=== PATIENT | male | born 1975 | race Caucasian/White ===

== ENCOUNTER → 2021-04-18 10:00 | Outpatient (CLI) | payer OTHER, SELFPAY ==
--- NOTE | ~2021-04-18 | MR_ITS ---
EXAMINATION: MR ankle RT wo con DATE: 04/18/2021 10:54 INDICATION: Sprain of right Achilles tendon. Right ankle injury. TECHNIQUE: Magnetic resonance imaging (MRI) of the right ankle was performed without intravenous cont rast. Sequences included sagittal PD-weighted FS FSE, sagittal PD-weighted FSE, coronal PD-weighted F S FSE, coronal PD-weighted FSE, axial PD-weighted FS FSE, and axial PD-weighted FSE. COMPARISON: None. FINDINGS: Medial ankle ligaments: There are changes of prior sprain of the deltoid ligament. The superficial component demonstrates thi ckening and increased signal intensity. The deep component demonstrates some absent fibers and some d isorganized fibers. Lateral ankle ligaments: There are changes of prior sprain of anterior talofibular ligament characterized by increased signal intensity. There are changes of sprain of calcaneofibular ligament characterized by thickening and in creased signal intensity. Posterior talofibular ligament is normal. The anterior and posterior tibiof ibular ligaments are intact. Tendons: There is mild peroneus brevis and peroneus longus tendinopathy. The anterior and medial ankle tendons are normal. Achilles tendon demonstrates thickening and increased signal intensity, worst 4.1 cm pro ximal to the distal attachment, consistent with tendinopathy and partial tear. Plantar fascia: There is thickening and increased signal involving the central band of plantar fascia, consistent wit h fasciitis. Bones/other: There is moderate osteoarthritis of tibiotalar joint, worst anteriorly. There is mild osteoarthritis of subtalar joint and some of the midfoot joints. Fluid: There are small ankle joint and subtalar joint effusions. IMPRESSION: 1. Tendinopathy and partial tear of Achilles tendon. 2. 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 3. Small ankle joint and subtalar joint effusions. 4. Plantar fasciitis. 5. Changes of prior medial and lateral ankle sprains. Reviewed, dictated and finalized at location A.
== END ==
PROVIDERS: Visit Provider Podiatrist Foot & Ankle Surgery
DX: S86.011A Strain of right Achilles tendon, initial encounter (principal); S86.091A Other specified injury of right Achilles tendon, initial encounter; X58.XXXA Exposure to other specified factors, initial encounter; M72.2 Plantar fascial fibromatosis; M19.071 Primary osteoarthritis, right ankle and foot; M25.471 Effusion, right ankle
CPT/HCPCS: 73721

== ENCOUNTER 2022-10-13 13:23 | Emergency (ER) | payer OTHER, SELFPAY ==
[2022-10-13] VITALS (15 sets, daily range): BP systolic 149–170; BP diastolic 80–85; PULSE 76–95; RESP 16; TEMP 36.7–36.9; O2SAT 94–100
--- NOTE | ~2022-10-13 | XR_ITS ---
EXAMINATION: XR chest 2V DATE: 10/13/2022 14:01 INDICATION: Chest pain and tightness TECHNIQUE: Frontal and lateral views of the chest are obtained COMPARISON: None available FINDINGS: There is a 7 mm nodule in right upper lobe. There is a 5 mm nodule in the right middle lobe . No pleural effusion or pneumothorax. The cardiomediastinal silhouette is normal. The visualized bon es and soft tissues are unremarkable. IMPRESSION: 1. Right lung nodules which could be sequela of prior infection however, further evaluation with CT o f the chest is recommended. Reviewed, dictated and finalized at location B. CIATE PROFESSOR PHYSICIAN IMPRESSION: 1. Right lung nodules which could be sequela of prior infection however, furthe r evaluation with CT of the chest is recommended.
--- NOTE | 2022-10-13 13:24 | ECG_ITS ---
Measurements Intervals [place] Rate: 91 P: 28 OR: 160 QRS: 62 QRSD: 102 T: 38 QT: 334 QTc: 413 Interpretive Statements SINUS RHYTHM NO PREVIOUS ECG AVAILABLE FOR COMPARISON Electronically Signed On 10-13-2022 15:52:14 FIBERLINE SUPERVISOR by Carolyn Klein M.D.
[2022-10-13 13:59] LABS: Basophils Percent Auto 0.6 % (0.2-1.2); Eosinophils Absolute Auto 0.1 K/mm3 (0-0.3); Eosinophils Percent Auto 1.4 % (0-4.4); Hematocrit 47.3 % (42.0-52.0); Hemoglobin 16.4 g/dL (14.0-18.0); Immature Granulocyte Absolute 0.03 K/mm3 (0.00-0.031); Immature Granulocyte Percent A 0.5 % (0-0.5); Lymphocytes Absolute Auto 2.78 K/mm3 (0.9-3.2); Lymphocytes Percent Auto 42.4 % (18.3-44.2); Mean Corpuscular HGB Conc 34.7 g/dl (32-36); Mean Corpuscular Hemoglobin 29.1 pg (26-34); Mean Corpuscular Volume 83.9 fl (80-100); Mean Platelet Volume 9.4 fl (7.4-10.4); Monocytes Absolute Auto 0.6 K/mm3 (0.1-0.6); Monocytes Percent Auto 9.3 % (2.6-8.5); Neutrophils Percent Auto 45.8 % (45.5-73.1); Platelet Count Result 292 k/mm3 (150-375); Red Blood Count 5.64 M/mm3 (4.6-6.20); White Blood Count 6.6 K/mm3 (4.5-10.0)
[2022-10-13 14:09] LABS: Alanine Aminotransferase 81 U/L (6-50); Albumin Level 4.9 g/dL (3.5-5.1); Alkaline Phosphatase 53 U/L (38-126); Anion Gap 9 mmol/L (8-16); Aspartate Amino Transferase 43 U/L (17-59); Bilirubin,Total 0.8 mg/dL (0.2-1.3); Blood Urea Nitrogen 17 mg/dL (9-20); Calcium 9.4 mg/dL (8.4-10.2); Carbon Dioxide 28 mmol/L (22-30); Chloride 99 mmol/L (98-107); Estimated CRCL calculation 90 ml/min; Estimated Glomerular Filt Rate > 60; Glucose 106 mg/dL (65-110); Lipase 73 U/L (23-300); Sodium 136 mmol/L (137-145)
[2022-10-13 14:21] LABS: Troponin I < 0.012 ng/mL (0.000-0.034)
[2022-10-13 16:29] LABS: INR 1.1; Prothrombin Time 13.4 Seconds (11.1-14.7)
[2022-10-13 16:30] LABS: Partial Thromboplastin Time 25.8 SECONDS (22.3-36.8)
[2022-10-13 16:41] LABS: Troponin I < 0.012 ng/mL (0.000-0.034)
--- NOTE | 2022-10-13 16:48 | ECG_ITS ---
Measurements Intervals [place] Rate: 90 P: 23 SD: 150 QRS: 70 QRSD: 106 T: 37 QT: 349 QTc: 428 Interpretive Statements SINUS RHYTHM NORMAL ECG COMPARED TO ECG 10/13/2022 13:30:31 NO SIGNIFICANT CHANGES Electronically Signed On 10-13-2022 17:03:55 CLIENT RENEWAL SPECIALIST by Khoa Reis M.D.
--- NOTE | 2022-10-13 16:48 | PC.NURSE ---
2nd trop drawn and 2nd ekg ordered
--- NOTE | 2022-10-13 17:37 | ED.CHESTPAIN ---
HPI - Chest Pain General Chief Complaint: Chest Pain Stated Complaint: CHEST TIGHTNESS [id number] Time Seen by Provider: 10/13/22 16:58 History of Present Illness HPI narrative: 47-year-old male history of anxiety and dyslipidemia presents to the emergency room for evaluation of chest tightness for 1 week. Patient states that he has been under significant external life stressors, including his son getting suspended from school, sister getting a divorce, and holding an intervention with his parents. Patient would not elaborate any further. States the chest tightness is worse at night, then usually disappears when he sleeps. Denies any other alleviating or aggravating factors denies shortness of breath. Does admit to some occasional dizziness and diarrhea. Related Data Home Medications Medication Instructions Recorded Confirmed fenofibrate 160 mg tablet mg 10/13/22 metformin 750 mg tablet,extended mg PO 10/13/22 release 24 hr Allergies Allergy/AdvReac Type Severity Reaction Status Date / Time No Known Allergies Allergy Verified 10/13/22 13:37 Review of Systems Review of Systems: CONSTITUTIONAL: Denies fever, chills, or sweats. EYES: Denies visual changes, redness, or discharge. ENT: Denies rhinorrhea, congestion, sore throat, or otalgia. CARDIOVASCULAR: Reports chest tightness RESPIRATORY: Denies cough or dyspnea. GASTROINTESTINAL: Reports diarrhea GENITOURINARY: Denies dysuria or hematuria. SKIN: Denies rash or itching. MUSCULOSKELETAL: Denies back pain, joint pain, or myalgia. NEUROLOGIC: Denies headache, numbness, dizziness, or weakness. PSYCHIATRIC: Denies anxiety or depression. Exam Narrative: GENERAL: Well-appearing, well-nourished, no physical limitations, and in no acute distress. HEAD: Normocephalic, atraumatic. EYES: Conjunctivae normal, PERRLA and EOMI. CHEST: Clear to auscultation. No respiratory distress. No wheezes rales or rhonchi. HEART: Regular rate and rhythm. No murmur heard. Normal peripheral pulses. ABDOMEN: Soft, nontender, nondistended, normal active bowel sounds. EXTREMITIES: Normal range of motion. No edema. No clubbing or cyanosis SKIN: Warm, dry, no rash. No noted wounds NEURO: No focal deficits. Alert and oriented x3. MAEW. CN's II-XI intact bilaterally, normal gait PSYCH: Cooperative. Normal mood and affect. Appears anxious Course Vital Signs Vital signs: Vital Signs Temperature 36.7 C 10/13/22 13:33 Pulse Rate 76 10/13/22 13:33 Respiratory Rate 16 10/13/22 13:33 Blood Pressure 170/82 H 10/13/22 13:33 Pulse Oximetry 100 10/13/22 13:33 Oxygen Delivery Room Air 10/13/22 13:33 Temperature 36.7 C 10/13/22 13:33 Pulse Rate 90 10/13/22 16:46 Respiratory Rate 16 10/13/22 17:01 Blood Pressure 150/80 H 10/13/22 17:01 Pulse Oximetry 97 10/13/22 17:01 Oxygen Delivery Room Air 10/13/22 13:33 MDM - Chest Pain MDM Narrative Medical decision making narrative: 47-year-old male history of anxiety and dyslipidemia presented emergency room for evaluation of chest tightness at night for a week. Admitted to being under significant life stressors at the moment which she believes may be contributing to symptoms. EKG showed no signs of ischemia. Troponin and delta troponin were both negative. Lab work was unremarkable. Chest x-ray showed no acute cardiopulmonary disease. PERC score was 0, D-dimer was within normal limits. Discussed findings with patient, stated that he may be experiencing some generalized anxiety due to his life stressors. We will trial the patient on hydroxyzine and follow-up with PCP. Lab Data 10/13/22 13:44 10/13/22 13:44 Labs: Lab Results 10/13/22 10/13/22 10/13/22 Range/Units 13:44 13:44 16:13 WBC 6.6 (4.5-10.0) K/mm3 RBC 5.64 (4.6-6.20) M/mm3 Hgb 16.4 (14.0-18.0) g/dL Hct 47.3 (42.0-52.0) % MCV 83.9 (80-100) fl MCH 29.1 (26-34) pg MCHC 34.7 (32-36) g/dl
[2022-10-13 18:09] LABS: D Dimer 0.38 ug/mL (<0.48)
== END 2022-10-13 18:58 | disposition home or self-care (01) ==
PROVIDERS: Emergency Medicine; Emergency Provider Nurse Practitioner Family; PCP Physician Assistant
DX: R07.89 Other chest pain (principal); F41.9 Anxiety disorder, unspecified; E78.5 Hyperlipidemia, unspecified; Z79.84 Long term (current) use of oral hypoglycemic drugs
CPT/HCPCS: 36415; 71046; 80053; 83690; 84484; 85025; 85380; 85610; 85730; 93005; 99284

== ENCOUNTER → 2023-02-04 10:09 | Outpatient (CLI) | payer OTHER, SELFPAY ==
--- NOTE | ~2023-02-04 | CT_ITS ---
Clinical Indication: Nonspecific abnormal finding of lung field CT Scan of the Chest with Contrast: Technique: Contiguous sections were acquired throughout the chest after intravenous administration of 75 cc of Omnipaque 350. Dose reduction technique was used on this scan by utilizing automated exposu re control and iterative reconstruction technique. The dose-length product (DLP) was 644.85 mGy-cm. Findings: There is no evidence of any significant mediastinal, hilar or axillary lymphadenopathy. No large cent ral pulmonary embolus. There is no evidence of aortic dissection or aneurysm. There is no evidence of pleural or pericardial effusion. Large calcified right upper lobe granuloma noted. Calcified right lower lobe granuloma present. Calci fied left lower lobe granuloma present. Images through the upper abdomen reveal to peripherally enhancing splenic lesions, measuring 2.2 cm a nd 1.6 cm in diameter respectively (axial image 103). Probable diffuse fatty infiltration of the live r noted. Impression: No suspicious pulmonary abnormality. Evidence of prior granulomatous disease. 2 peripherally enhancing splenic lesions, as noted above, indeterminate. Comparison with any prior ex ams, if available, would be useful to assess for chronicity of these findings. Otherwise, consider MR for further evaluation. Reviewed, dictated and finalized at location . Impression: No suspicious pulmonary abnormality. Evidence of prior granulomatous disease. 2 peripherally enhancing splenic lesions, as noted above, indeterminate. Compar prabha with any prior exams, if available, would be useful to assess for chronici ty of these findings. Otherwise, consider MR for further evaluation.
[2023-02-04 10:32] LABS: Estimated Glomerular Filt Rate 59
== END ==
PROVIDERS: PCP Physician Assistant; Visit Provider Physician Assistant
DX: R91.8 Other nonspecific abnormal finding of lung field (principal)
CPT/HCPCS: 71260; Q9967

== ENCOUNTER 2023-02-24 09:19 | Day surgery (SDC) | payer OTHER, SELFPAY ==
[2023-02-01 13:10] VITALS: BMI 38.4
[2023-02-07 14:14] VITALS: BMI 35.9
--- NOTE | 2023-02-23 14:59 | P.PNAN_ITS ---
Anes - Initial Pre Proc Eval Procedure: Operation Date: 02/24/23 11:00 Proposed Procedures p Screening Colonoscopy - Jasper Ruelas MD Date/Time: 02/23/23 14:59 Surgeon: Jasper Ruelas MD Pre Op Diagnosis: Neoplasm Screening Patient Data Age: 47 Gender: M Height: 1.78 m Weight: 113.6 kg Allergies Allergy/AdvReac Type Severity Reaction Status Date / Time No Known Allergies Allergy Verified 02/24/23 09:40 Home Medications Medication Instructions Recorded Confirmed Type fenofibrate 160 mg tablet 160 mg PO DAILY 10/13/22 02/24/23 History metformin 750 mg tablet,extended 750 mg PO DAILY 10/13/22 02/24/23 History release 24 hr Adults Multivitamin 1 tablet PO DAILY 02/07/23 02/24/23 History semaglutide 0.25 mg or 0.5 mg (2 5 mg subcut WEEKLY 02/07/23 02/24/23 History mg/1.5 mL) subcutaneous pen injector (Ozempic) Patient hx anesthesia problems: none Family hx anesthesia problems: none Results Review: All pre-operative results and documents have been reviewed as part of the pre- operative evaluation. [facility] Past Medical History Medical History (Updated 02/23/23 @ 14:59 by Jimi Roberson MD) Diabetes Obesity Social History Social History Smoking status: Never smoker Alcohol intake: current Drinks per week: 1 Substance use: never Substance use type: does not use Living arrangements: with family Spiritual care concerns: No Anes - Eval Final PreProcedure Day of Procedure 02/23/23 14:59 Patient weight: obese Heart: regular rate and rhythm Lungs: clear to auscultation and normal air movement Airway: Mallampati scale class II Neurological: alert and oriented Last oral intake: >/= 8 hours ASA classification: III Emergent: no Anesthetic plan: proceed Anesthesia type and monitoring: general GIVS Results Review: All pre-operative results and documents have been reviewed as part of the pre- operative evaluation. Informed Consent: The patient's anesthetic plan and its attendant risks and benefits were dis cussed with the patient/family/POA. Questions were solicited and answers provided to the satisfaction of the patient/family/POA.
[2023-02-24 09:35] VITALS: BP 140/83; PULSE 90; RESP 20; TEMP 36.5; O2SAT 98
[2023-02-24] MEDS: LACTATED RINGERS 1,000 ML 150 ML IV CONT (10:08)
[2023-02-24 10:09] LABS: Glucose Point of Care 103 mg/dl (65-105)
--- NOTE | 2023-02-24 10:22 | PM.HPGS ---
History of Present Illness History of Present Illness Consent: Risks, benefits, and alternatives have been discussed and questions answered. Patient agrees to proceed with procedure. Chief complaint: Neoplasm Screening Narrative: Brad Villa is a 47 year old male here for first screening colonoscopy Review of Systems Constitutional: Constitutional: Denies headache(s) and Denies weakness Eyes: Eyes: Denies blurry vision ENT: Reports Normal hearing present, Denies headache(s) and Denies neck pain Cardiovascular: Cardiovascular: Denies chest pain and Denies dyspnea Respiratory: Respiratory: Denies dyspnea Gastrointestinal: Gastrointestinal: Reports no additional gastrointestinal complaints Genitourinary: Genitourinary: Denies dysuria Musculoskeletal: Musculoskeletal: Denies neck pain Integumentary/Breasts: Skin/Breast: Denies dry skin Neurologic: Reports Normal hearing present, Denies headache(s) and Denies weakness Psychiatric: Psychiatric: Denies anxiety Endocrine: Endocrine: Denies change in body appearance Hematologic/Lymphatic: Hematologic/Lymphatic: Denies easy bleeding Allergic/Immunologic: Allergic/Immunologic: Denies urticaria [facility] Past Medical History Medical History (Updated 02/24/23 @ 10:23 by Jasper Ruelas MD) Colon cancer screening Diabetes Obesity Social History Social History Smoking status: Never smoker Alcohol intake: current Drinks per week: 1 Substance use: never Substance use type: does not use Living arrangements: with family Spiritual care concerns: No Meds Home Medications and Allergies Home Medications Medication Instructions Recorded Confirmed Type fenofibrate 160 mg tablet 160 mg PO DAILY 10/13/22 02/24/23 History metformin 750 mg tablet,extended 750 mg PO DAILY 10/13/22 02/24/23 History release 24 hr Adults Multivitamin 1 tablet PO DAILY 02/07/23 02/24/23 History semaglutide 0.25 mg or 0.5 mg (2 5 mg subcut WEEKLY 02/07/23 02/24/23 History mg/1.5 mL) subcutaneous pen injector (Ozempic) Allergies Allergy/AdvReac Type Severity Reaction Status Date / Time No Known Allergies Allergy Verified 02/24/23 09:40 Vital Signs Vital Signs - 24 hr 02/24/23 09:35 Temperature 97.7 F Pulse Rate 90 Respiratory Rate 20 Blood Pressure 140/83 Pulse Oximetry 98 Oxygen Delivery Room Air Exam Const: General: comfortable and no acute distress HENMT: Face/Nose/Sinus: Normal nares present Eyes: General: appearance normal, both eyes and all related structures Neck: Neck: no JVD Resp: Auscultation: clear to auscultation bilaterally Cardio: Rate: regular rate Rhythm: regular rhythm GI: Inspection: non-distended GI Palp: Yes Soft to palpation Skin: General skin exam: normal color Neuro: General: gait normal Speech: normal speech Extrem: General: normal to inspection Psych: Mental Status: mental status grossly normal Assessment and Plan Assessment and plan (1) Colon cancer screening: Code(s): Z12.11 - Encounter for screening for malignant neoplasm of colon Status: Acute Assessment and Plan: colonoscopy
[2023-02-24 10:48] VITALS: BP 104/71; PULSE 73; RESP 14; O2SAT 93
[2023-02-24 10:58] VITALS: BP 107/72; PULSE 84; RESP 15; O2SAT 98
[2023-02-24 11:08] VITALS: BP 121/73; PULSE 78; RESP 15; O2SAT 97
--- NOTE | 2023-03-01 08:46 | WPDANESPN ---
Anes - Prog Note Post-Op Date/Time: 03/01/23 08:46 Cardiovascular status: normal Respiratory status: normal Airway patency: baseline Mental status: baseline Post-Op hydration status: normal Vital Signs: Last Vital Signs Temp 36.5 C 02/24/23 09:35 Pulse 78 02/24/23 11:08 Resp 15 02/24/23 11:08 BP 121/73 02/24/23 11:08 Pulse Ox 97 02/24/23 11:08 O2 Del Method Room Air 02/24/23 11:08 Pain Score (VAS): 0 Post-procedural complaints: none Patient Feedback: Patient satisfied with anesthetic care.
== END 2023-02-24 11:10 | disposition home or self-care (01) ==
PROVIDERS: PCP Physician Assistant; Visit Provider Internal Medicine Gastroenterology
PROC: 0DJD8ZZ Inspection of Lower Intestinal Tract, Via Natural or Artificial Opening Endoscopic (ICD-10-PCS; CPT 45378; principal; 2023-02-24 11:00)
DX: Z12.11 Encounter for screening for malignant neoplasm of colon (principal)
CPT/HCPCS: 45378

== ENCOUNTER → 2023-06-02 12:49 | Outpatient (CLI) | payer OTHER, SELFPAY ==
--- NOTE | ~2023-06-02 | MR_ITS ---
EXAMINATION: MR abdomen wo/w con DATE: 06/02/2023 13:58 INDICATION: Lesion of spleen. TECHNIQUE: Magnetic resonance imaging (MRI) of the abdomen was performed without and with 20 mL Multi Kalli intravenous contrast. COMPARISON: Chest CT 02/04/2023 FINDINGS: There is diffuse hepatic steatosis. There are 2.3 cm and 1.7 cm hyperenhancing masses in the spleen. The gallbladder, pancreas, and adrenal glands are normal. There are cysts in the kidneys measuring up to 10 mm on the right. There are no dilated loops of bowel. There are no pathologically enlarged lym ph nodes. There is no ascites. IMPRESSION: 1. Two hyperenhancing splenic masses measuring up to 2.3 cm, stable from 02/04/2023. 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 Reviewed, dictated and finalized at location A. IMPRESSION: 1. Two hyperenhancing splenic masses measuring up to 2.3 cm, stable from 023. 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
== END ==
PROVIDERS: PCP Physician Assistant; Visit Provider Physician Assistant
DX: D73.89 Other diseases of spleen (principal)
CPT/HCPCS: 74183; A9577

== ENCOUNTER 2023-11-09 15:24 | Outpatient (CLI) | payer OTHER, SELFPAY ==
--- NOTE | ~2023-11-09 | XR_ITS ---
EXAMINATION: XR abdomen/kub 1V DATE: 11/09/2023 16:47 INDICATION: Gross hematuria. TECHNIQUE: A supine view of the abdomen on 2 radiographs was obtained. COMPARISON: CT abdomen and pelvis 11/09/23 FINDINGS: There are no dilated loops of bowel. There is contrast in the renal collecting system. Ther e is mild right hydronephrosis and hydroureter. IMPRESSION: 1. Mild right hydronephrosis and hydroureter. Reviewed, dictated and finalized at location E. DDER OPERATOR
--- NOTE | ~2023-11-09 | CT_ITS ---
EXAMINATION: CT abdomen pelvis wo/w con DATE: 11/09/2023 16:07 INDICATION: Gross hematuria. Right flank pain. TECHNIQUE: Computed tomography (CT) of the abdomen and pelvis was performed without and with intraven ous contrast using a total of 130 mL Omnipaque-350 intravenous contrast with a double-bolus technique for simultaneous opacification of the renal parenchyma and renal collecting system. Automated exposu re control and iterative reconstruction technique were employed. The dose-length product was 2697.50 mGy-cm. COMPARISON: Abdomen MRI 06/02/2023, chest CT 06/02/2023. FINDINGS: The visualized portions of the lung bases demonstrate mild atelectasis. A calcified right lung nodule is consistent with old granulomatous disease. No pleural effusion. The heart size is normal. No ron cardial effusion. There is diffuse hepatic steatosis. The gallbladder and pancreas are normal. There are 2 hyperenhancing masses in the spleen measuring up to 2.1 cm, stable from 02/04/2023, likely heman giomas or hamartomas. The adrenal glands are normal. There are cysts in the kidneys measuring up to 1 6 mm on the right. There is mild right hydronephrosis and hydroureter. There is a 4 mm stone in dista l right ureter. The ureters and bladder are well opacified by contrast. The prostate is mildly enlarg ed. There are no pathologically enlarged lymph nodes. There is no free intraperitoneal fluid. There i s an umbilical hernia containing fat. There is mild thoracic spondylosis. There is severe lower lumba r spondylosis. IMPRESSION: 1. 4 mm stone in distal right ureter with mild right hydronephrosis and hydroureter. Reviewed, dictated and finalized at location E. YSIS SOCIAL WORKER IMPRESSION: 1. 4 mm stone in distal right ureter with mild right hydronephrosis and hydrour eter.
== END 2023-11-09 15:25 | disposition home or self-care (01) ==
PROVIDERS: PCP Physician Assistant; Visit Provider Urology
DX: R31.0 Gross hematuria (principal); N20.1 Calculus of ureter
CPT/HCPCS: 74018; 74178; Q9967

== ENCOUNTER 2023-11-15 01:00 | Day surgery (SDC) | payer OTHER, SELFPAY ==
[2023-11-14 11:17] VITALS: BMI 35.2
--- NOTE | 2023-11-14 11:25 | PC.NURSE ---
Report to the Outpatient Waiting Room, entrance under the green pavilion located off [facility], at time 1145 on date 11/15/23. Planned Procedure Time: 1345. Time changes happen often and if your time is changed the preop area will call you the afternoon before. - You and your visitor will be asked to self-screen and do not enter if you have any COVID symptoms. - A mask is optional within the hospital at this time. Patients may have clear liquids (water, carbonated beverages, clear teas, apple juice) until 3 hours prior to surgery with a maximum of 20 ounces. - No food from midnight until time of surgery Take the following medications with a SIP of water the morning of surgery: TRAMADOL IF NEEDED DO NOT STOP ANY OF YOUR OTHER PRESCRIPTION MEDICATIONS PRIOR TO SURGERY ?EXCEPT THE FOLLOWING Medications to discontinue per physician: N/A Date to take last dose: N/A Please no make-up, nail tajik, hairspray, perfume, deodorant, or body powder the day of surgery. No jewelry (including any body piercings) or valuables the day of surgery, leave them at home. Please take a shower or bath the night before, or the morning of, surgery with an antibacterial soap. Wear comfortable, loose fitting clothing. - Jewelry must be removed prior to entering the operating room. Rings and piercings that are not removed may be cut off. - The hospital will not accept responsibility for valuables. - Please leave all valuables, including medications, at home the day of surgery. If you are going home after surgery, a licensed oil truck driver must drive you home. - NO public transportation without another adult if you receive anesthesia. - We recommend that an adult stay with you for 24 hours following discharge. - We also recommend that you do not drive, make important decision, drink alcoholic beverages, or take any drugs that were not prescribed by your health care provider for at least 24 hours after your discharge time. Follow any additional instructions given to you from your surgeon. If you or anyone in your household have experienced Covid symptoms in the past week, please notify your surgeon or the nurse liaison at the phone number below for possible testing. Telephone instructions given to PT - DULCE BENITEZ and asked if any additional questions and then verbalized understanding. Patient advised to call surgeon office or pre surgery nurse liaison [phone] if any additional questions.
[2023-11-15] VITALS (8 sets, daily range): BP systolic 119–150; BP diastolic 72–91; PULSE 80–101; RESP 14–20; TEMP 36.2–36.6; O2SAT 95–98
--- NOTE | ~2023-11-15 | XR_ITS ---
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 TECHNIQUE: 3 fluoroscopic images of the abdomen and pelvis were obtained during right retrograde pyel ography with stone extraction and stent placement performed by the surgeon. I was not present during the procedure. Fluoroscopy exposure time was 14.7 seconds. Air Kerma 7.59 mGy. DAP [id number] mGym2. COMPARISON: CT abdomen pelvis 11/09/2023 FINDINGS: 4 mm stone in the distal right ureter. Air-filled mildly dilated loops of small bowel may represent i leus. Post stent deployment the proximal coil is within the renal pelvis. The distal coil was not medina ged. IMPRESSION: Possible small bowel ileus. Fluoroscopic documentation of right retrograde pyelography with stone extraction and stent placement. Please refer to the operative note for complete procedural details. Reviewed, dictated and finalized at location K. LER OPERATOR IMPRESSION: Possible small bowel ileus. Fluoroscopic documentation of right retrograde pyelography with stone extractio n and stent placement. Please refer to the operative note for complete procedur al details.
--- NOTE | 2023-11-15 11:32 | ECG_ITS ---
Measurements Intervals [place] Rate: 92 P: 46 NC: 149 QRS: 56 QRSD: 103 T: 39 QT: 329 QTc: 408 Interpretive Statements SINUS RHYTHM BASELINE ARTIFACT- I, II, III, AVR, AVL NORMAL ECG COMPARED TO ECG 10/13/2022 16:53:15 NO SIGNIFICANT CHANGES Electronically Signed On 11-15-2023 12:12:37 FLAME CUTTING MACHINE OPERATOR by Bob Bowman D.O.
[2023-11-15] MEDS: LACTATED RINGERS 1,000 ML 30 ML IV CONT (12:30)
--- NOTE | 2023-11-15 13:17 | WPDHPUPDATE1 ---
History and Physical Update Update Date/Time: 11/15/23 13:17 History and Physical has been reviewed, including an updated exam of the patient. There are NO changes in the patient's condition. Risks, benefits, and alternatives have been discussed and questions answered. Patient agrees to proceed with procedure. Proceed with cystoscopy, right retrograde, right ureteroscopy with stone extraction, right stent placement, possible laser
[2023-11-15] MEDS: ceFAZolin 2 GM/D5W 50 ML 2 GM/50 ML BAG IVPB (13:35)
[2023-11-15] MEDS: LIDOCAINE HCL 2% GEL UROJET 10 ML PKG MUCOUS MEM (13:57)
--- NOTE | 2023-11-15 13:59 | W.PM.PROC2 ---
Procedure Note - Detailed Date of Procedure 11/15/23 Pre-op Diagnosis Right Ureteral Stone, Gross Hematuria Post-op Diagnosis Same Procedure Performed Cystoscopy, right retrograde pyelogram, right ureteroscopy with stone extraction, right ureteral stent placement 4.8 [place] contour Surgeon Bull Chan MD Anesthesia General Description of Procedure Patient is taken the operative suite correctly identified. Once anesthesia was obtained was placed in dorsal lithotomy position and prepped and draped usual sterile fashion. Twenty-two [place] scope inserted the bladder. There are no heat tumors noted. The right ureteral orifice was cannulated with a Sensor wire and then dilated using an 8/10 dilator. Rigid ureteral scope was inserted. The stone was visualized. Using escape basket was retrieved and sent for analysis. It was noted that a piece of it had broken off. Reinspection of the ureter revealed no residual stones. Pyelogram was then performed. 4.8 [place] contour stent was then placed with the proximal end coiled in the renal pelvis and the distal end in the bladder. 2% viscous lidocaine was inserted patient is taken recovery stable condition. He will follow-up in a week's time for stent removal. This completes dictation. Please send a copy of op note to my office. Estimated Blood Loss 0 Drains Yes Packing No Pathology Yes Complications No immediate complications Condition Stable Disposition PACU
[2023-11-15 14:23] LABS: Anion Gap 9 mmol/L (8-16); Blood Urea Nitrogen 11 mg/dL (9-20); Carbon Dioxide 25 mmol/L (22-30); Chloride 105 mmol/L (98-107); Estimated CRCL calculation 77 ml/min; Estimated Glomerular Filt Rate 59; Glucose 95 mg/dL (65-110); Potassium 3.9 mmol/L (3.4-5.0); Sodium 139 mmol/L (137-145)
--- NOTE | 2023-11-16 09:27 | WPDANESEPPF ---
Anes - Initial Pre Proc Eval Procedure: Operation Date: 11/15/23 13:45 Proposed Procedures p Cystoscopy, Right Ureteroscopy, Right Retrograde Pyelogram, Right Stone Extraction, Possible Holmium Laser, Possible Right Stent Placement - Bull Chan MD Date/Time: 11/16/23 09:27 Surgeon: Bull Chan MD Pre Op Diagnosis: Right Ureteral Stone, Gross Hematuria Patient Data Age: 48 Gender: M Height: 1.78 m Weight: 111.6 kg Last Vital Signs Temp 36.6 C 11/15/23 14:45 Pulse 80 11/15/23 15:40 Resp 20 11/15/23 15:40 BP 140/80 11/15/23 15:40 Pulse Ox 95 11/15/23 14:45 O2 Del Method Room Air 11/15/23 15:40 O2 Flow Rate 10 11/15/23 14:15 Allergies Allergy/AdvReac Type Severity Reaction Status Date / Time No Known Allergies Allergy Verified 11/15/23 11:50 Home Medications Medication Instructions Recorded Confirmed Type fenofibrate 160 mg tablet 160 mg PO DAILY 10/13/22 11/14/23 History metformin 750 mg tablet,extended 750 mg PO HS 11/14/23 11/14/23 History release 24 hr semaglutide 0.25 mg or 0.5 mg (2 0.5 mg subcut WEEKLY 11/14/23 11/14/23 History mg/3 mL) subcutaneous pen injector (Ozempic) tamsulosin 0.4 mg capsule 0.4 mg PO HS 11/14/23 11/14/23 History tramadol 50 mg tablet 50 mg PO Q6H PRN Pain 11/14/23 11/14/23 History Laboratory Tests 11/15/23 12:24 Sodium 139 mmol/L (137-145) Potassium 3.9 mmol/L (3.4-5.0) Chloride 105 mmol/L (98-107) Carbon Dioxide 25 mmol/L (22-30) Anion Gap 9 mmol/L (8-16) BUN 11 D mg/dL (9-20) Creatinine 1.30 mg/dL (0.7-1.3) Estim Creat Clear Calc 77 ml/min Estimated GFR 59 (59 - ) Glucose 95 mg/dL (65-110) Calcium 10.0 mg/dL (8.4-10.2) Patient hx anesthesia problems: none Family hx anesthesia problems: none Results Review: All pre-operative results and documents have been reviewed as part of the pre-operative evaluation. [facility] Past Medical History Medical History Colon cancer screening Diabetes Obesity Social History Social History Smoking status: Never smoker Alcohol intake: never Drinks per week: 1 Substance use: never Substance use type: does not use Living arrangements: with family Spiritual care concerns: No Anes - Eval Final PreProcedure Day of Procedure 11/16/23 09:27 Patient weight: obese Heart: regular rate and rhythm Lungs: clear to auscultation Airway: Mallampati scale class II Last oral intake: >/= 8 hours ASA classification: III Anesthetic plan: proceed Anesthesia type and monitoring: general LMA and standard monitoring Results Review: All pre-operative results and documents have been reviewed as part of the pre-operative evaluation. Informed Consent: The patient's anesthetic plan and its attendant risks and benefits were discussed with the patient/family/POA. Questions were solicited and answers provided to the satisfaction of the patient/family/POA.
== END 2023-11-15 15:45 | disposition home or self-care (01) ==
PROVIDERS: Anesthesiology; PCP Physician Assistant; Visit Provider Urology
PROC: (CPT 52352; principal; 2023-11-15 13:45)
DX: N20.1 Calculus of ureter (principal); R31.0 Gross hematuria; Z79.84 Long term (current) use of oral hypoglycemic drugs; Z79.85 Long-term (current) use of injectable non-insulin antidiabetic drugs; E66.9 Obesity, unspecified; Z68.35 Body mass index [BMI] 35.0-35.9, adult
CPT/HCPCS: 52332; 52352; 36415; 74420; 80048; 82365; 88300; 93005; C1758; C1769; C2617; J0690; J2250; J3010; J7120; Q9966

== ENCOUNTER 2024-02-14 07:28 | Outpatient (CLI) | payer OTHER, SELFPAY ==
--- NOTE | ~2024-02-14 | MR_ITS ---
EXAMINATION: MR abdomen wo/w con DATE: 02/14/2024 08:55 INDICATION: Kidney mass. Splenic mass. TECHNIQUE: Magnetic resonance imaging (MRI) of the abdomen was performed without and with 20 mL Multi Kalli intravenous contrast. COMPARISON: Abdomen MRI 06/02/2023, CT abdomen and pelvis 11/09/2023, chest CT 02/04/2023 FINDINGS: There is diffuse hepatic steatosis. There is a 5 mm cyst in the liver. The gallbladder is normal. The re are 2.1 cm and 1.4 cm hyperenhancing masses in the spleen. There is a 5 mm cyst in the pancreas. T he adrenal glands are normal. There are cysts in the kidneys measuring up to 12 mm on the left. There are no dilated loops of bowel. There are no pathologically enlarged lymph nodes. There is no free in traperitoneal fluid. IMPRESSION: 1. 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 2. Benign cysts in the kidneys. 3. 5 mm cyst in the pancreas, stable from 06/02/2023. The differential diagnosis includes pseudocyst, intraductal papillary mucinous neoplasm (IPMN), mucinous cystic neoplasm (MCN), serous cystadenoma, a nd neuroendocrine tumor. Abdomen MRI without and with contrast is recommended in one year. Reviewed, dictated and finalized at location A. IMPRESSION: 1. 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 2. Benign cysts in the kidneys. 3. 5 mm cyst in the pancreas, stable from 06/02/2023. The differential diagnosis includes pseudocyst, intraductal papillary mucinous neoplasm (IPMN), mucinous cystic neoplasm (MCN), serous cystadenoma, and neuroendocrine tumor. Abdomen MR I without and with contrast is recommended in one year.
== END 2024-02-14 07:29 | disposition home or self-care (01) ==
PROVIDERS: PCP Physician Assistant; Visit Provider Urology
DX: D73.89 Other diseases of spleen (principal); K86.2 Cyst of pancreas; N28.1 Cyst of kidney, acquired
CPT/HCPCS: 74183; A9577

== ENCOUNTER 2025-01-19 07:22 | Outpatient (CLI) | payer BC, SELFPAY ==
--- NOTE | ~2025-01-19 | MR_ITS ---
EXAMINATION: MR abdomen wo/w con DATE: 01/19/2025 09:16 INDICATION: Cystic pancreatic lesion TECHNIQUE: Magnetic resonance imaging (MRI) of the abdomen was performed without and with 19 mL Multi andres intravenous contrast. Sequences included coronal T2-weighted SS-FSE, coronal T2-weighted FS SS -FSE, coronal T2-weighted FS FIESTA, axial T2-weighted FS FIESTA, axial T2-weighted FIESTA, sagittal T2-weighted SS-FSE, axial T1-weighted dual-echo FSPGR, axial T2-weighted SS-FSE, axial T1-weighted LA VA, axial T2-weighted STIR FSE. Thick-slab T2-weighted FRFSE-XL images were obtained for magnetic res onance cholangiopancreatography (MRCP). Rotating maximum intensity projection 3-D reconstructions of the volumetric data were created by the technologist. Postcontrast sequences included a time course o f axial T1-weighted LAVA. COMPARISON: 02/14/2024 FINDINGS: Heart size is normal. No pericardial or pleural effusion. Liver, gallbladder and bilateral adrenal gl ands are normal. No intra or extra hepatic biliary ductal dilation. There are a few bilateral nonenha ncing T2 hyperintense renal cysts measuring up to 1.6 cm at the right kidney. There are couple unchan ged T2 hyperintense splenic lesions measuring 2.0 cm and 1.5 cm demonstrate peripheral enhancement wh ich gradually fills in the 5 minute delayed images were there remains hyperintense to the spleen and isointense to the vasculature most consistent with hemangiomas or hamartomas. Unchanged 6 mm T2 hyper intense nonenhancing pancreatic cyst which remains without evident enhancing soft tissue component. V isual is portions of bowels including the appendix are normal. No pathologically enlarged abdominal o r upper pelvic lymphadenopathy. Moderate lumbar spondylosis. IMPRESSION: 1. A couple hyperenhancing splenic masses unchanged from CT dated 02/04/2023 most likely hemangiomas o r hamartomas. 2. No significant change in a 6 mm nonenhancing cyst in the pancreas, unchanged since MRI dated 2022. The differential diagnosis would include pseudocyst, intraductal papillary mucinous neoplasm (I PMN), mucinous cystic neoplasm (MCN), and the less common serous cystadenoma and neuroendocrine tumor . Recommend continued annual pre and postcontrast MRI follow-up. Reviewed, dictated and finalized at location A. IMPRESSION: 1. A couple hyperenhancing splenic masses unchanged from CT dated 02/04/2023 mos t likely hemangiomas or hamartomas. 2. No significant change in a 6 mm nonenhancing cyst in the pancreas, unchanged since MRI dated 06/02/2023. The differential diagnosis would include pseudocyst , intraductal papillary mucinous neoplasm (IPMN), mucinous cystic neoplasm (MCN ), and the less common serous cystadenoma and neuroendocrine tumor. Recommend c ontinued annual pre and postcontrast MRI follow-up.
--- OUTSIDE RECORDS SUMMARY | 2025-01-19 07:28 | XMS_ITS | Data Portability ---
Author Organization [place] - [employer], Main Office Address [address] [place] [address] Care Team Providers Care Radio Board Operator Announcer Name Role Phone SAYDAANGELIQUE DIAMOND Primary Care Provider ANGELIQUE VILA Referring Provider [phone] Assessment No assessment recorded. Plan of Treatment Reminders Order Date Submit Date Provider Last Modified By Organization Details Last Modified Time Details Appointments None recorded. Lab vitamin D, 25-hydrox y, total, serum 023 024 [email or web address] [facility], [address] [place] [address], [address], 4 11:11:24 CBC w/ auto diff 023 024 [email or web address] 4 [facility], [address] [place] [address], [address], 4 11:11:09 CMP, serum or plasma 023 024 [email or web address] 4 [facility], [address] [place] [address], [address], 4 11:11:14 TSH + free T4, serum 023 024 [email or web address] 4 [facility], [address] [place] [address], [address], 4 11:11:20 HbA1c (hemoglob in A1c), blood 023 024 [email or web address] 4 [facility], [address] [place] [address], [place], [address], 4 11:10:42 microalbu min, urine 023 024 [email or web address] 4 [facility], [address] [facility] [address], [place], [address], 4 11:10:50 microalbu min/creat inine, mass ratio, urine 023 024 [email or web address] 4 [facility], [address] [place] [address] 2, [place], [address], 4 11:10:56 lipid panel, serum 023 024 [email or web address] 4 [facility], [address] [place] [address] 2, [place], [address], 4 11:11:03 testoster one, free + total, serum 023 024 [email or web address] 4 [facility], [address] [place] [address] 2, [place], [address], 4 11:11:30 vitamin B12 + folate, serum or blood 023 024 [email or web address] 4 [facility], [address] [place] [address] 2, [place], [address], 4 11:11:35 Referral None recorded. Procedures None recorded. Surgeries None recorded. Imaging None recorded. Medication Orders None recorded. Patient TargetsNo targets recorded. Patient InstructionsNo instructions recorded. Reason for Referral None Reported. Results Created Date Observation Date Name Description Value Unit Range Abnormal Flag Note LastModifiedBy Organization Detail LastModifiedTime 09/16/20 21 09/17/2021 VITAM IN D, 25-HY DROXY vitamin D, 25-hydroxy 33.8 NG/mL 30.0-1 00.0 Vitam in D defic iency has been defin ed by the Insti tute of Medic ine and an Endoc rine Socie ty pract ice guide line as a level of serum 25-OH vitam in D less than 20 ng/mL (1,2) . The Endoc rine Socie ty went on to furth er defin e vitam in D insuf ficie ncy as a level betwe en 21 and 29 ng/mL (2). 1. IOM (Inst itute of Medic ine). 2010. Dieta ry refer ence intak es for calci um and D. Jarrod palacios [place]: [facility] Press . 2. Audrey cleary MF, Gene leone [place], Polina off-F errar i DANIEL, et al. Evalu ation , treat ment, and preve ntion of vitam in D defic iency : an Endoc rine Socie ty clini dominick pract ice guide line. JCEM. 2010; 96(7) :1911 -30. Not Available [facility] ([facility]) [address] [place], [address], 09/17/2021 10:37:17 09/16/20 21 09/17/2021 HEMOG LOBIN A1C hemoglobin A1C 6.8 % 4.8-5. 6 above high normal Predi abete s: 5.7 - 6.4 Diabe judi: >6.4 Glyce brijehs contr ol for adult s with diabe judi: <7.0 Not Available [facility] ([facility]) [address] [place], [address], 09/17/2021 10:37:16 09/16/20 21 09/17/2021 ALBUM IN/CR EATIN INE RATIO ,URIN E creatinine, urine 173.0 mg/dL not estab. Not Available [facility] ([facility]) [address] [place], [address], 09/17/2021 10:37:16 09/16/20 21 09/17/2021 ALBUM IN/CR EATIN INE RATIO ,URIN E albumin, urine 11.5 ug/mL not estab. Not Available [facility] ([facility]) [address] [place], [address], 09/17/2021 10:37:16 09/16/20 21 09/17/2021 ALBUM IN/CR EATIN INE RATIO ,URIN E alb/creat ratio 7 mg/g_ creat 0-29 Luz Elena l: 0 - 29 Moder ately incre ased: 30 - 300 Sever cristy incre ased: >300 Not Available [facility] ([facility]) [address] [place], [address], 09/17/2021 10:37:16 09/16/20 21 09/17/2021 LIPID PANEL W/ CHOL/ HDL RATIO cholesterol, total 239 mg/dL 100-19 9 above high normal Not Available [facility] ([facility]) [address] [place], [address], 09/17/2021 10:37:15 09/16/20 21 09/17/2021 LIPID PANEL W/ CHOL/ HDL RATIO triglyceride s 324 mg/dL 0-149 above high normal Not Available [facility] ([facility]) [address] [place], [address], 09/17/2021 10:37:15 09/16/20 21 09/17/2021 LIPID PANEL W/ CHOL/ HDL RATIO HDL cholesterol 33 mg/dL >39 below low normal Not Available [facility] ([facility]) [address] [place], [address], 09/17/2021 10:37:15 09/16/20 21 09/17/2021 LIPID PANEL W/ CHOL/ HDL RATIO VLDL cholesterol dominick 60 mg/dL 5-40 above high normal Not Available [facility] ([facility]) [address] [place], [address], 09/17/2021 10:37:15 09/16/20 21 09/17/2021 LIPID PANEL W/ CHOL/ HDL RATIO LDL [facility] 146 mg/dL 0-99 above high normal Not Available [facility] ([facility]) [address] [place], [address], 09/17/2021 10:37:15 09/16/20 21 09/17/2021 LIPID PANEL W/ CHOL/ HDL RATIO comment: 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 chol/HDL ratio 7.2 ratio 0.0-5. 0 above high normal T. Chol/ HDL Ratio Men Women 1/2 Avg.R isk 3.4 3.3 Avg.R isk 5.0 4.4 2X Avg.R isk 9.6 7.1 3X Avg.R isk 23.4 11.0 Not Available [facility] ([facility]) [address] [place], [address], 09/17/2021 10:37:15 09/16/20 21 09/17/2021 COMP. METAB OLIC PANEL (14) glucose 152 mg/dL 65-99 above high normal Not Available [facility] ([facility]) [address] [place], [address], 09/17/2021 10:37:15 09/16/20 21 09/17/2021 COMP. METAB OLIC PANEL (14) BUN 12 mg/dL 6-24 Not Available [facility] ([facility]) [address] [place], [address], 09/17/2021 10:37:15 09/16/20 21 09/17/2021 COMP. METAB OLIC PANEL (14) creatinine 1.35 mg/dL 0.76-1 .27 above high normal Not Available [facility] ([facility]) [address] [place], [address], 09/17/2021 10:37:15 09/16/20 21 09/17/2021 COMP. METAB OLIC PANEL (14) eGFR if nonafricn AM 62 mL/mi n/1.7 3 >59 Not Available [facility] ([facility]) [address] [facility], [place], [address], 09/17/2021 10:37:15 09/16/20 21 09/17/2021 COMP. METAB OLIC PANEL (14) eGFR if africn AM 72 mL/mi n/1.7 3 >59 In accor dance with recom menda tions from the NKF-A SN Task force , [facility] is in the proce ss of updat ing its eGFR calcu latio n to the 2020 CKD-E PI creat inine equat ion that estim ates kidne y funct ion witho ut a race varia ble. Not Available [facility] ([facility]) [address] [facility], [place], [address], 09/17/2021 10:37:15 09/16/20 21 09/17/2021 COMP. METAB OLIC PANEL (14) BUN/creatini ne ratio 9 9-20 Not Available [facility] ([facility]) [address] [facility], [place], [address], 09/17/2021 10:37:15 09/16/20 21 09/17/2021 COMP. METAB OLIC PANEL (14) sodium 139 mmol/ L 134-14 4 Not Available [facility] ([facility]) [address] [place], [address], 09/17/2021 10:37:15 09/16/20 21 09/17/2021 COMP. METAB OLIC PANEL (14) potassium 4.5 mmol/ L 3.5-5. 2 Not Available [facility] ([facility]) [address] [place], [address], 09/17/2021 10:37:15 09/16/20 21 09/17/2021 COMP. METAB OLIC PANEL (14) chloride 99 mmol/ L 96-106 Not Available [facility] ([facility]) [address] [facility], [place], [address], 09/17/2021 10:37:15 09/16/20 21 09/17/2021 COMP. METAB OLIC PANEL (14) carbon dioxide, total 24 mmol/ L 20- Not Available [facility] ([facility]) [address] [facility], [place], [address], 09/17/2021 10:37:15 09/16/20 21 09/17/2021 COMP. METAB OLIC PANEL (14) calcium 9.9 mg/dL 8.7-10 .2 Not Available [facility] ([facility]) [address] [facility] [place], [address], 09/17/2021 10:37:15 09/16/20 21 09/17/2021 COMP. METAB OLIC PANEL (14) protein, total 7.3 g/dL 6.0-8. 5 Not Available [facility] ([facility]) [address] [facility], [place], [address], 09/17/2021 10:37:15 09/16/20 21 09/17/2021 COMP. METAB OLIC PANEL (14) albumin 4.7 g/dL 4.0-5. 0 Not Available [facility] ([facility]) [address] [facility] [place], [address], 09/17/2021 10:37:15 09/16/20 21 09/17/2021 COMP. METAB OLIC PANEL (14) globulin, total 2.6 g/dL 1.5-4. 5 Not Available [facility] ([facility]) [address] [facility] [place], [address], 09/17/2021 10:37:15 09/16/20 21 09/17/2021 COMP. METAB OLIC PANEL (14) A/G ratio 1.8 1.2-2. 2 Not Available [facility] ([facility]) [address] [facility] [place], [address], 09/17/2021 10:37:15 09/16/20 21 09/17/2021 COMP. METAB OLIC PANEL (14) bilirubin, total 0.5 mg/dL 0.0-1. 2 Not Available [facility] ([facility]) [address] [place], [address], 09/17/2021 10:37:15 09/16/20 21 09/17/2021 COMP. METAB OLIC PANEL (14) alkaline phosphatase 48 IU/L 44-121 Ple ase note refer ence inter pierre lin e Not Available [facility] ([facility]) [address] [place], [address], 09/17/2021 10:37:15 09/16/20 21 09/17/2021 COMP. METAB OLIC PANEL (14) AST (SGOT) 23 IU/L 0-40 Not Available [facility] ([facility]) [address] [place], [address], 09/17/2021 10:37:15 09/16/20 21 09/17/2021 COMP. METAB OLIC PANEL (14) ALT (SGPT) 42 IU/L 0-44 Not Available [facility] ([facility]) [address] [place], [address], 09/17/2021 10:37:15 09/16/20 21 09/17/2021 TSH+F REE T4 TSH 1.520 uIU/m L 0.450- 4.500 Not Available [facility] ([facility]) [address] [place], [address], 09/17/2021 10:37:14 09/16/20 21 09/17/2021 TSH+F REE T4 T4,free(dire ct) 1.18 NG/dL 0.82-1 .77 Not Available [facility] ([facility]) [address] [place], [address], 09/17/2021 10:37:14 03/17/20 22 03/18/2022 PROST ATE-S PECIF IC AG prostate specific Ag 3.0 NG/mL 0.0-4. 0 Lawanda ECLIA metho dolog y. Accor ding to the Ameri can Urolo gical Assoc iatio n, Serum PSA shoul d decre ase and remai n at undet ectab le level s after radic al prost atect karl. The AUA defin es bioch emica l recur rence as an initi al PSA value 0.2 ng/mL or great er follo wed by a subse quent confi rmato ry PSA value 0.2 ng/mL or great er. Value s obtai geri with diffe rent assay metho ds or kits canno t be used inter lin eably . Resul ts canno t be inter prete d as absol [place]ahu[place] evide nce of the prese nce or absen ce of hui [place] se. Not Available [facility] ([facility]) [address] [facility], [place], [address], 03/18/2022 04:08:16 03/17/20 22 03/18/2022 HEMOG LOBIN A1C hemoglobin A1C 6.9 % 4.8-5. 6 above high normal Predi abete s: 5.7 - 6.4 Diabe judi: >6.4 Glyce brijesh contr ol for adult s with diabe judi: <7.0 Not Available [facility] ([facility]) [address] [place], [address], 03/18/2022 04:08:15 03/17/20 22 03/18/2022 LIPID PANEL W/ CHOL/ HDL RATIO cholesterol, total 217 mg/dL 100-19 9 above high normal Not Available [facility] ([facility]) [address] [place], [address], 03/18/2022 04:08:15 03/17/20 22 03/18/2022 LIPID PANEL W/ CHOL/ HDL RATIO triglyceride s 375 mg/dL 0-149 above high normal Not Available [facility] ([facility]) [address] [facility] [place], [address], 03/18/2022 04:08:15 03/17/20 22 03/18/2022 LIPID PANEL W/ CHOL/ HDL RATIO HDL cholesterol 36 mg/dL >39 below low normal Not Available [facility] ([facility]) [address] [facility] [place], [address], 03/18/2022 04:08:15 03/17/20 22 03/18/2022 LIPID PANEL W/ CHOL/ HDL RATIO VLDL cholesterol dominick 65 mg/dL 5-40 above high normal Not Available [facility] ([facility]) [address] [facility] [place], [address], 03/18/2022 04:08:15 03/17/20 22 03/18/2022 LIPID PANEL W/ CHOL/ HDL RATIO LDL chol [facility]) 116 mg/dL 0-99 above high normal Not Available [facility] ([facility]) [address] 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 [place], [address], 03/18/2022 04:08:15 03/17/20 22 03/18/2022 LIPID PANEL W/ CHOL/ HDL RATIO T. chol/HDL ratio 6.0 ratio 0.0-5. 0 above high normal T. Chol/ HDL Ratio Men Women 1/2 Avg.R isk 3.4 3.3 Avg.R isk 5.0 4.4 2X Avg.R isk 9.6 7.1 3X Avg.R isk 23.4 11.0 Not Available [facility] ([facility]) [address] [place], [address], 03/18/2022 04:08:15 03/17/20 22 03/18/2022 COMP. METAB OLIC PANEL (14) glucose 133 mg/dL 65-99 above high normal Not Available [facility] ([facility]) [address] [place], [address], 03/18/2022 04:08:14 03/17/20 22 03/18/2022 COMP. METAB OLIC PANEL (14) BUN 16 mg/dL 6-24 Not Available [facility] ([facility]) [address] [place], [address], 03/18/2022 04:08:14 03/17/20 22 03/18/2022 COMP. METAB OLIC PANEL (14) creatinine 1.28 mg/dL 0.76-1 .27 above high normal Not Available [facility] ([facility]) [address] [place], [address], 03/18/2022 04:08:14 03/17/20 22 03/18/2022 COMP. METAB OLIC PANEL (14) eGFR 69 mL/mi n/1.7 3 >59 Not Available [facility] ([facility]) [address] [place], [address], 03/18/2022 04:08:14 03/17/20 22 03/18/2022 COMP. METAB OLIC PANEL (14) BUN/creatini ne ratio 13 9-20 Not Available [facility] ([facility]) [address] [place], [address], 03/18/2022 04:08:14 03/17/20 22 03/18/2022 COMP. METAB OLIC PANEL (14) sodium 140 mmol/ L 134-14 4 Not Available [facility] ([facility]) [address] [place], [address], 03/18/2022 04:08:14 03/17/20 22 03/18/2022 COMP. METAB OLIC PANEL (14) potassium 4.8 mmol/ L 3.5-5. 2 Not Available [facility] ([facility]) [address] [place], [address], 03/18/2022 04:08:14 03/17/20 22 03/18/2022 COMP. METAB OLIC PANEL (14) chloride 100 mmol/ L 96-106 Not Available [facility] ([facility]) [address] [place], [address], 03/18/2022 04:08:14 03/17/20 22 03/18/2022 COMP. METAB OLIC PANEL (14) carbon dioxide, total 25 mmol/ L 20-29 Not Available [facility] ([facility]) [address] [place], [address], 03/18/2022 04:08:14 03/17/20 22 03/18/2022 COMP. METAB OLIC PANEL (14) calcium 9.9 mg/dL 8.7-10 .2 Not Available [facility] ([facility]) [address] [place], [address], 03/18/2022 04:08:14 03/17/20 22 03/18/2022 COMP. METAB OLIC PANEL (14) protein, total 7.0 g/dL 6.0-8. 5 Not Available [facility] ([facility]) [address] [place], [address], 03/18/2022 04:08:14 03/17/20 22 03/18/2022 COMP. METAB OLIC PANEL (14) albumin 4.5 g/dL 4.0-5. 0 Not Available [facility] ([facility]) [address] [place], [address], 03/18/2022 04:08:14 03/17/20 22 03/18/2022 COMP. METAB OLIC PANEL (14) globulin, total 2.5 g/dL 1.5-4. 5 Not Available [facility] ([facility]) [address] [facility], [place], [address], 03/18/2022 04:08:14 03/17/20 22 03/18/2022 COMP. METAB OLIC PANEL (14) A/G ratio 1.8 1.2-2. 2 Not Available [facility] ([facility]) [address] [facility] [place], [address], 03/18/2022 04:08:14 03/17/20 22 03/18/2022 COMP. METAB OLIC PANEL (14) bilirubin, total 0.5 mg/dL 0.0-1. 2 Not Available [facility] ([facility]) [address] [facility] [place], [address], 03/18/2022 04:08:14 03/17/20 22 03/18/2022 COMP. METAB OLIC PANEL (14) alkaline phosphatase 52 IU/L 44-121 Not Available [facility] [address] [facility], [place], [address], 03/18/2022 04:08:14 03/17/20 22 03/18/2022 COMP. METAB OLIC PANEL (14) AST (SGOT) 35 IU/L 0-40 Not Available [facility] ([facility]) [address] [facility] [place], [address], 03/18/2022 04:08:14 03/17/20 22 03/18/2022 COMP. METAB OLIC PANEL (14) ALT (SGPT) 71 IU/L 0-44 above high normal Not Available [facility] ([facility]) [address] [facility] [place], [address], 03/18/2022 04:08:14 08/20/20 21 XR, ankle No observ ation record ed. [id number] [email or web address] [place] [address], [place], [address], 12/15/2022 04:39:35 10/28/19 23 10/13/2022 XR, chest , 2 view No observ ation record ed. [id number] [facility] [address], [place], [address], 12/15/2022 04:39:35 02/25/20 23 02/24/2023 colon oscop y scree yesenia (PROC ) No observ ation record ed. [email or web address] Not Available 2022 15:10:07 05/10/20 23 02/04/2023 CT, chest , w/ contr ast No observ ation record ed. [email or web address] [facility] [address], [place], [address], 05/26/2023 10:35:00 06/03/20 23 06/02/2023 MRI, splee n, w/wo contr ast No observ ation record ed. [email or web address] [address] [facility] [address], [place], [address], 10/18/2023 15:47:39 Result Notes None recorded. Problems Name Problem SNOMED Code Status Onset Date Resolution Date Notes Provider Name and Address Organization Details Recorded Time Fatigue 96375125 Active 2022 CECELIA Martin [address], [place], [address] , [employer] 3 15:29:47 Lesion of spleen 29102365920 9101 Active 2022 CECELIA Martin [address], [address], [place], [address] , [employer] 3 10:35:07 Microscop ic hematuria 083624620 Active 2023 CECELIA Martin [address], [address], [place], [address] , [employer] 4 12:22:45 Strain of right Achilles tendon 53726661549 053778 Active 2020 Not Available [facility] 3 04:33:41 Pain of right ankle joint 61821017884 935523 Active 2020 Not Available [facility] 3 04:33:41 Insomnia 811825700 Active Not Available [facility] 3 04:33:41 Mixed hyperlipi demia 197097221 Active 2021 Not Available [facility] 3 04:33:41 Strain of calf muscle 747133239 Active 2020 Not Available [facility] 3 04:33:41 Hypertrig lyceridem ia 641304554 Active Not Available [facility] 3 04:33:41 Type 2 diabetes mellitus without complicat ion 129736255 Active 2021 Not Available [facility] 3 04:33:42 Hyperthyr oidism 10038561 Completed Not Available [facility] 3 04:33:42 Vitamin D deficienc y 45959627 Active Not Available [facility] 3 04:33:42 Multiple nodules of lung 539299465 Active 2022 Not Available [facility] 3 04:33:42 Hyperlipi demia 27451188 Active 2021 Not Available [facility] 3 04:33:42 Moderate anxiety 46112875 Active Not Available [facility] 3 04:33:42 Problem Notes None recorded. Procedures Surgical History Date Name Laterality Status Provider Name and Address Organization Details Recorded Time Vasectomy completed Not Available [facility] 0 12/15/2022 04:29:31 Imaging Results Imaging Date Name Status [facility] Details LastModified Time 10/13/2022 XR, chest, 2 view completed [id number] [facility] [address], [place], [address], 12/15/2022 04:39:35 08/20/2021 XR, ankle completed [id number] [facility] [place] [address], [place], [address], 12/15/2022 04:39:35 02/24/2023 colonoscopy screening (PROC) [email or web address] Information not available 05/10/2023 15:10:07 02/04/2023 CT, chest, w/ contrast completed [email or web address] [facility] [address], [place], [address], 05/26/2023 10:35:00 06/02/2023 MRI, spleen, w/wo contrast completed [email or web address] [facility] [address], [place], [address], 10/18/2023 15:47:39 Procedure Notes None recorded. Medical Equipment None Reported. Medications Name Sig Start Date Stop Date Status Note LastModified by Organization Details LastModified Time cefpodoxi me 200 mg tablet TAKE 1 TABLET BY MOUTH TWICE A DAY FOR 3 DAYS 03/19 completed Not Available Not Available Not Available azithromy david 250 mg tablet TAKE 4 TABLETS BY MOUTH ONE DOSE 03/19 completed Not Available Not Available Not Available prednison e 20 mg tablet TAKE 3 TABLETS BY MOUTH EVERY DAY FOR 5 DAYS 03/19 completed Not Available Not Available Not Available clonazepa m 0.5 mg tablet TK 1 T PO QAM 04/05 completed Not Available Not Available Not Available metronida zole 500 mg tablet TAKE 4 TABLETS BY MOUTH EVERY DAY TAKEN TOGETHER 03/19 completed Not Available Not Available Not Available amoxicill in 875 mg tablet TAKE 1 TABLET BY MOUTH EVERY 12 HOURS FOR 10 DAYS 03/19 completed Not Available Not Available Not Available temazepam 15 mg capsule take one capsule PO 30 min. before bedtime active manually fax. Not Available Not Available Not Available temazepam 30 mg capsule Take 1 capsule every day by oral route at bedtime. active Not Available Not Available No t Available hydroxyzi ne HCl 25 mg tablet TAKE 1 TABLET BY MOUTH THREE TIMES DAILY NEEDED FOR ANXIETY active Not Available Not Available No t Available lovastati n 20 mg tablet Take 1 tablet every day by oral route at bedtime. active Not Available Not Available No t Available paroxetin e ER 12.5 mg tablet,ex tended release 24 hr Take 1 tablet(s ) EVERY DAY x 14 days, then take 2 tabs daily thereaft er active Not Available Not Available No t Available escitalop daksha 10 mg tablet TK SS T PO IN THE MORNING AND 1 T PO IN THE EVENING. 04/05 completed Not Available Not Available Not Available metformin ER 750 mg tablet,ex tended release 24 hr TAKE 1 TABLET BY MOUTH EVERY DAY AT DINNER active Not Available Not Available No t Available rosuvasta tin 5 mg tablet TAKE 1 TABLET BY MOUTH 3 TIMES A WEEK IN THE EVENING 09/18 completed Not Available Not Available Not Available escitalop daksha 5 mg tablet TK 1 T PO QD 04/05 completed Not Available Not Available Not Available eszopiclo ne 2 mg tablet TK 1 T PO HS 04/05 completed Not Available Not Available Not Available eszopiclo ne 1 mg tablet TK 1 T PO QD HS PRF INSOMNIA 04/05 completed Not Available Not Available Not Available fenofibra te 160 mg tablet TAKE 1 TABLET BY MOUTH DAILY 2022 active Not Available Not Available Not Avai lable multivita min takes daily 2014 active Not Available Not Available Not Avai lable fenofibri c acid (choline) 135 mg capsule,d elayed release TAKE 1 CAPSULE DAILY 12/30 completed Not Available Not Available Not Available Vitamin D3 50 mcg (2,000 unit) capsule Take by oral route. 04/05 completed Not Available Not Available Not Available OneTouch Verio test strips U UTD BID active Not Available Not Available No t Available Vascepa 1 gram capsule Take 2 capsule twice a day by oral route with meals. 03/19 completed Not Available Not Available Not Available OneTouch Verio Meter U UTD active Not Available Not Available Not Available Flonase Allergy Relief Daily as needed 2014 active Not Available Not Available Not Avai lable Fluarix Quad 5714-9360 (PF) 60 mcg (15 mcg x 4)/0.5 mL IM syringe active Not Available Not Available Not Available Fluvirin 45 mcg (15 mcg x 3)/0.5 mL intramusc ular suspensio n ADM 0.5ML IM UTD 04/05 completed Not Available Not Available Not Available Ozempic 0.25 mg or 0.5 mg (2 mg/1.5 mL) subcutane ous pen injector INJECT 0.5 MG UNDER THE SKIN EVERY WEEK DIRECTED active Not Available Not Available No t Available Fluzone Quad (P F) 60 mcg(15 mcgx4)/0. 5 mL intramusc ular syringe ADM 0.5ML IM UTD 08/15 completed Not Available Not Available Not Available Flucelvax Quad (PF) 60 mcg (15 mcg x 4)/0.5 mL IM syringe active Not Available Not Available Not Available Paxlovid 300 mg (150 mg x 2)-100 mg tablets in a dose pack TK 2 NIRMATRE LVIR TS AND 1 RITONAVI R T TOGETHER PO BID FOR 5 DAYS TWICE DAILY X 5 DAYS 10/25 completed Not Available Not Available Not Available Ozempic 0.25 mg or 0.5 mg (2 mg/3 mL) subcutane ous pen injector INJECT 0.5MG UNDER THE SKIN EVERY WEEK 2022 active Not Available Not Available Not Avai lable Vitals Date Recorded Body mass index (BMI) Body height Oxygen saturation Oxygen saturation in Arterial blood by Pulse oximetry Heart rate Body temperature Body weight Systolic blood pressure Diastolic blood pressure Provider Name and Address Organization Details Last Updated DateTime 1 38.1 kg/m2 175.26 cm 98 % 98 % 110 /min 97.5 [degF] 647939. 55 g 140 mm[Hg] 90 mm[Hg] Not Available [facility] 3 04:32:08 Date Recorded Body mass index (BMI) Body height Oxygen saturation Oxygen saturation in Arterial blood by Pulse oximetry Heart rate Respiratory rate Body temperature Body weight Systolic blood pressure Diastolic blood pressure Provider Name and Address Organization Details Last Updated DateTime 2 38.1 kg/m2 175.26 cm 98 % 98 % 90 /min 16 /min 97.5 [degF] 627404. 83 g 150 mm[Hg] 92 mm[Hg] Not Available [facility] 3 04:32:08 Date Recorded Body mass index (BMI) Body height Oxygen saturation Oxygen saturation in Arterial blood by Pulse oximetry Heart rate Respiratory rate Body weight Systolic blood pressure Diastolic blood pressure Provider Name and Address Organization Details Last Updated DateTime 2 36.8 kg/m2 175.26 cm 98 % 98 % 108 /min 18 /min 466703. 5 g 122 mm[Hg] 68 mm[Hg] Not Available [facility] 3 04:32:08 Date Recorded Body mass index (BMI) Body height Oxygen saturation Oxygen saturation in Arterial blood by Pulse oximetry Heart rate Body temperature Body weight Systolic blood pressure Diastolic blood pressure Provider Name and Address Organization Details Last Updated DateTime 3 38.4 kg/m2 175.26 cm 99 % 99 % 102 /min 98.4 [degF] 085776. 02 g 140 mm[Hg] 84 mm[Hg] Not Available [facility] 3 04:32:08 Date Recorded Body height Body temperature Body mass index (BMI) Body weight Heart rate Oxygen saturation Oxygen saturation in Arterial blood by Pulse oximetry Systolic blood pressure Diastolic blood pressure Provider Name and Address Organization Details Last Updated DateTime 3 175.26 cm 98 [degF] 36.2 kg/m2 818151. 13 g 80 /min 98 % 98 % 122 mm[Hg] 78 mm[Hg] Lola Faria RN [place] - [facility] 3 14:59:17 Social History Question Answer Notes LastModified by Organizat ion Details LastModified Time Tobacco Smoking Status Never Smoker Not Available [facility] 12/15/2022 04:12:42 What Is Your Level Of Alcohol Consumption? Occasional [id number] Information not available 12/15/2022 What Is Your Level Of Caffeine Consumption? Moderate Coffee Daily MIGRATION.[id number] Information not available 12/15/2022 How Much Tobacco Do You Chew? None MIGRATION.49519 03724 Information not available 12/15/2022 In The 14 Days Before Symptom Onset, Have You Had Close Contact With A Laboratory-confi rmed COVID-19 While That Case Was Ill? No MIGRATION.[id number] Information not available 12/15/2022 In The 14 Days Before Symptom Onset, Have You Had Close Contact With A Person Who Is Under Investigation For COVID-19 While That Person Was Ill? No MIGRATION.10132 33751 Information not available 12/15/2022 Are You Currently Employed? Yes [email or web address] Information not available 05/09/2023 What Type Of Diet Are You Following? CARBOHYDRATE Low Carb And Low Sugar MIGRATION.[id number] Information not available 12/15/2022 Which Illicit Or Recreational Drugs Have You Used? None MIGRATION.86269 89907 Information not available 12/15/2022 What Is Your Occupation? [employer] MIGRATION.28549 51705 Information not available 12/15/2022 Have There Been Any Changes To Your Family Or Social Situation? No MIGRATION.06913 57700 Information not available 12/15/2022 Do You Use Insect Repellent Routinely? No MIGRATION.66594 68403 Information not available 12/15/2022 What Is Your Relationship Status? MIGRATION.85554 88861 Information not available 12/15/2022 Do You Use Your Seat Belt Or Car Seat Routinely? Yes MIGRATION.89378 72767 Information not available 12/15/2022 Do You Have Smoke And Carbon Monoxide Detectors In Your Home? Yes MIGRATION.95220 58153 Information not available 12/15/2022 Do You Or Have You Ever Used Smokeless Tobacco? Never Used Smokeless Tobacco MIGRATION.74049 18775 Information not available 12/15/2022 How Much Tobacco Do You Smoke? No MIGRATION.48597 77632 Information not available 12/15/2022 Do You Use Any Illicit Or Recreational Drugs? No MIGRATION.05339 84154 Information not available 12/15/2022 Do You Use Sunscreen Routinely? Yes MIGRATION.62927 61248 Information not available 12/15/2022 Have You Recently Traveled Abroad? No MIGRATION.69953 98049 Information not available 12/15/2022 Do You Have Any Dietary Restrictions? Yes MIGRATION.96774 27981 Information not available 12/15/2022 Do You Or Have You Ever Used Any Other Forms Of Tobacco Or Nicotine? No MIGRATION.09771 40550 Information not available 12/15/2022 Sex: Unknown Functional Status Question Answer Note LastModified by Organizat ion Details LastModified Time What is your exercise level? Occasional [id number] Information not available 12/15/2022 Mental Status None recorded. Family History Relationship Description Onset Age of this Age Resolved Age Notes LastModified by Organization Details LastModified Time Mother History of thyroid disorder [id number] Not available 12/15/2022 04:29:35 Mother Anxiety disorder MIGRATION.888 [id number] Not available 12/15/2022 04:29:35 Mother Depressive disorder MIGRATION.694 [id number] Not available 12/15/2022 04:29:35 Father History of back pain MIGRATION.162 [id number] Not available 12/15/2022 04:29:35 Father Crohn's disease MIGRATION.387 [id number] Not available 12/15/2022 04:29:35 Brother Hypertensive disorder MIGRATION.952 [id number] Not available 12/15/2022 04:29:35 Sister Hyperlipidem ia MIGRATION.789 [id number] Not available 12/15/2022 04:29:35 Medical History Condition Response DIABETES, TYPE Y ALLERGIES/HAYFEVER Y ANXIETY DISORDER Y DEPRESSION (INCLUDING POST ) Y HIGH CHOLESTEROL / HYPERLIPIDEMIA Y Immunizations Vaccine Type Date Status Note Provider Nam e and Address Organization Details Recorded Time COVID-19, mRNA, LNP-S, PF, 100 mcg/0.5mL dose or 50 mcg/0.25mL dose 1 completed Not Available [facility] 12/15/2022 04:39:11 influenza, unspecified formulation 5 completed Not Available [facility] 12/15/2022 04:39:12 influenza, unspecified formulation 6 completed Not Available [facility] 12/15/2022 04:39:12 Influenza, split virus, quadrivalent, PF 9 completed Not Available [facility] 12/15/2022 04:39:12 Influenza, split virus, quadrivalent, PF 0 completed Not Available [facility] 12/15/2022 04:39:12 Past Encounters Encounter ID Performer Location Encounter Start Date Encounter Closed Date Diagnosis/Indication Diagnosis SNOMED-CT Code Diagnosis ICD10 Code Diagnosis Note [id number] [facility] [address] [place] [address] 03/06/2021 00:00:00 03/06/2021 12:56:24 [id number] [facility] [address] [place] [address] 04/08/2021 00:00:00 04/09/2021 08:48:38 [id number] [facility] [address] [place] [address] 05/28/2021 00:00:00 05/28/2021 13:43:51 [id number] [facility] [address] [place] [address] 07/06/2021 00:00:00 07/07/2021 10:43:25 [id number] [facility] [address] [place] [address] 08/20/2021 00:00:00 08/20/2021 12:55:10 [id number] [facility] [address] [place] [address] 09/18/2021 00:00:00 10/14/2021 12:12:17 [id number] [facility] [address] [place] [address] 10/22/2021 00:00:00 10/26/2021 09:49:18 [id number] [facility] [address] [place] [address] 03/19/2022 00:00:00 04/15/2022 20:20:18 [id number] [facility] [address] [place] [address] 10/26/2022 00:00:00 11/07/2022 13:02:25 [id number] CECELIA Martin [facility] [address] [place] [address] 05/10/2023 14:50:27 05/10/2023 15:31:33 Hyperlipidemia 38506535 E78.5 stable on fenofibrat e and lovastatin therapy. Best lipid panel he's had to date here. following again in October Type 2 elmer betes mellitus without complication 801658452 E11.9 stable on metformin and ozempic. .5.9% a1c Moderate anxiety 3120275 6 F41.9 stable on hydroxyzin e prn Long-term drug therapy 923690697 Z79.899 Vitamin D deficiency 347 96331 E55.9 vit d lab ordered for next labs in october. Fatigue 98099134 R53.83 screening testostero ne and b12, folate labs Health Concerns Section Related Observation LastModified by Organization Detai ls LastModified Time None Recorded Concern Status LastModified by Organization Details LastModified Time None Recorded Advance Directives Directive None Recorded Payers Encounter Date Sequence Insurance Name Policy Number Policy Peacock Covered Member ID Peacock Member ID Guarantor Name 05/10/2023 1 [facility] [id number] Brad Villa [id number] Brad Villa Notes Date Note Type Note Provider Name and Address Organization Details Recorded Time 021 text/ht ml Anxiety, Generalized DisorderReported bypatient.Associated Symptoms:no difficulty concentrating; no difficulty controlling worry; no difficulty swallowing; no anxiety; no excessive sweating; no hot flashes; no palpitations; no shortness of breath; no nausea; no diarrhea; no fatigue; no irritability; no muscle tension; no muscle aches; no trembling; no twitching; no headaches; no restlessness; no sleep disturbancesHyperlipidemiaReported bypatient.Control:usually well controlled; improving; at goal Compliance:compliant; compliant with diet; exercises Complications:no coronary artery disease; no peripheral artery disease; no cardiovascular disease Not Available [facility] 10/14/2021 12:12:17 022 text/ht ml Anxiety/DepressionReported bypatient.Quality:symptoms improved Severity:denies suicidal ideations; able to maintain relationships; does not interfere with activities of daily living Context:no major life stressors Associated Symptoms:denies homicidal ideations; no significant weight gain; no significant weight loss; no visual/auditory hallucinations; no delusions; no shortness of breath; mood good; no anxiety; no crying spells; no panic; no isolation; sleeping well; appetite good; energy good; no apathy; maintaining functionalityDiabetesReported bypatient.Duration:chronic Control:usually well controlled; improved since last visit; normal range of home blood sugars (in the low 100s); treated with diet and oral medications; hemoglobin A1C has been 7-8; hemoglobin A1C goal is less than 7 Compliance:compliant with medications; compliant with follow-up visits; compliant with home glucose monitoring;noncompliant with diet Self Care:monitoring glucose Context:seeing eye doctor regularly; checking feet regularly Associated Symptoms:weight gain ( lbs)HyperlipidemiaReported bypatient.Duration:chronic Control:usually well controlled; improving; at goal Compliance:compliant; compliant with diet; exercises Complications:no coronary artery disease; no peripheral artery disease; no cardiovascular diseaseInsomniaReported bypatient.Severity:improving Associated Symptoms:no anxiety; no snoring; no depression; no known sleep apnea; no pain; no dyspnea; no urinary frequency; legs do not feel restless Not Available [employer] 04/15/2022 20:20:18 023 text/ht ml Anxiety/DepressionReported bypatient.Quality:symptoms improved Severity:denies suicidal ideations; able to maintain relationships; does not interfere with activities of daily living Context:no major life stressors Associated Symptoms:denies homicidal ideations; no significant weight gain; no significant weight loss; no visual/auditory hallucinations; no delusions; no shortness of breath; mood good; no anxiety; no crying spells; no panic; no isolation; sleeping well; appetite good; energy good; no apathy; maintaining functionalityNotes:pt went to er last month for panic symptoms, records in roomDiabetesReported bypatient.Duration:chronic Control:usually well controlled; improved since last visit; normal range of home blood sugars (in the low 100s); treated with diet and oral medications; hemoglobin A1C has been 7-8; hemoglobin A1C goal is less than 7 Compliance:compliant with medications; compliant with follow-up visits; compliant with home glucose monitoring;noncompliant with diet Self Care:monitoring glucose Context:seeing eye doctor regularly; checking feet regularly Associated Symptoms:weight gain ( lbs)HyperlipidemiaReported bypatient.Duration:chronic Control:usually well controlled; improving; at goal Compliance:compliant; compliant with diet; exercises Complications:no coronary artery disease; no peripheral artery disease; no cardiovascular diseaseInsomniaReported bypatient.Severity:improving Associated Symptoms:no anxiety; no snoring; no depression; no known sleep apnea; no pain; no dyspnea; no urinary frequency; legs do not feel restless Not Available [employer] 11/07/2022 13:02:25 023 text/ht ml Anxiety/DepressionReported bypatient.Severity:denies suicidal ideations; able to maintain relationships; does not interfere with activities of daily living Context:no major life stressors Associated Symptoms:denies homicidal ideations; no significant weight gain; no significant weight loss; no visual/auditory hallucinations; no delusions; no shortness of breathDiabetesReported bypatient.Duration:chronic Control:usually well controlled; improved since last visit Compliance:compliant with medications; compliant with follow-up visits; compliant with diet; compliant with home glucose monitoring; had eye doctor visit in last year; had dietitian visit in last year; wears a medic alert bracelet or necklace; rapid-acting carbohydrate kept in car Self Care:monitoring glucose Context:normal range of home blood sugars (in the low 100s); seeing eye doctor regularly; checking feet regularly Associated Symptoms:no weight gain; no weight loss; no dizziness; no sweats; no headaches; no confusion; no increased thirst; no increased appetite; no increased urination; no blurred vision; no numbness of feet; no calluses on feet; no coronary artery disease; no kidney disease; no peripheral vascular disease; no diabetic retinopathy; no diabetic neuropathyHyperlipidemiaReported bypatient.Duration:chronic Control:usually well controlled; improving; at goal Compliance:compliant; compliant with diet; exercises Complications:no coronary artery disease; no peripheral artery disease; no cardiovascular diseaseInsomniaReported bypatient.Quality:cannot identify Severity:improving Associated Symptoms:no anxiety; no snoring; no depression; no known sleep apnea; no pain; no dyspnea; no urinary frequency; legs do not feel restless 6 mo f/uresults in review to you CECELIA Martin [address] [facility], [facility] [address], [place], [address], [place] - [facility] 05/14/2023 19:04:16
--- OUTSIDE RECORDS SUMMARY | 2025-01-19 07:29 | XMS_ITS | Data Portability ---
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 Sleep issues/dyssomn ia/fatigue: patient has been waking up every day at 2 or 3 am in the morning and am unable to go back to sleep. pt is exhausted throughout the day. he has no problem falling asleep at night at 9 or 10 pm but exhaustion continues. . Pt wonders if this is related to sleep Apnea or some other underlying health condition. discussion about possible sleep study in near future to r/o sleep apnea. Not available 08/22/2024 12:32:12 08/22/2024 08/22/2024 colonoscopy 2022, repeat 10 years. Not available 08/22/2024 12:14:32 Plan of Treatment Reminders Order Date Submit Date Provider Last Modified By Organization Details Last Modified Time Details Appointments ANY 15 2024 01:00P M CECELIA Martin Not available Not available Not available Lab lipid panel, serum 2023 024 [facility], [address], [address], 09/13/2024 08:26:15 TSH + free T4, serum 2023 024 [facility], [address] [facility], [facility] 2, [place], [address], 09/13/2024 08:26:16 CMP, serum or plasma 2023 024 [facility], [address] [place] [address], [facility], [place], [address], 09/13/2024 08:26:18 CBC w/ auto diff 2023 024 [facility], [address] [place] [address], [facility], [place], [address], 09/13/2024 08:26:20 HbA1c (hemoglob in A1c), blood 2023 024 [facility], [address] [place] [address], [facility], [place], [address], 09/13/2024 08:26:19 PSA, total, serum or plasma 2023 024 [facility], [address] [place] [address], [facility], [place], [address], 09/13/2024 08:26:21 lipid panel, serum 2023 024 [facility], [address] [place] [address], [facility], [place], [address], 03/22/2024 03:37:46 HbA1c (hemoglob in A1c), blood 2023 024 [facility], [address] [place] [address], [facility], [place], [address], 03/22/2024 03:37:49 microalbu min/creat inine, mass ratio, urine 2023 024 [facility], [address] [place] [address], [facility], [place], [address], 03/22/2024 03:37:45 microalbu min, urine 2023 024 [email or web address] [facility], [address] [place] [address], [facility] [address], [place], [address], 04/09/2024 18:01:46 PSA, total, serum or plasma 2023 024 [facility], [address] [place] [address] 2, [place], [address], 03/22/2024 03:37:51 TSH + free T4, serum 2023 024 [facility], [address] [place] [address] 2, [place], [address], 03/22/2024 03:37:47 CMP, serum or plasma 2023 024 [facility], [address] [place] [address] 2, [place], [address], 03/22/2024 03:37:48 CBC w/ auto diff 2023 024 [facility], [address] [place] [address] 2, [place], [address], 03/22/2024 03:37:50 Referral None recorded. Procedures home sleep testing (PROC) - Patient's insurance would not honor the 1st sleep study because there was no office note discussin g it being ordered. Patient will be paying self-pay for repeat study 2023 024 [facility], [address] , [facility] [address], [place], [address], 09/27/2024 13:44:20 Surgeries None recorded. Imaging CT, coronary calcium score 2024 025 [facility] (Rad), [address] [facility] , [place], [address], 12/26/2024 17:00:51 MRI, abdomen, w/wo contrast 2023 025 [facility] (Imaging), [address] [facility] [address], [place], [address], 01/03/2025 11:11:04 Medication Orders None recorded. Patient TargetsNo targets recorded. Patient Instructions Encounter Date Encounter Id Patient Instructions Last Modified By Organization Details Last Modified Time 03/05/2024 [id number] A healthy lifestyle: care instructions Not available 03/18/2024 22:49:01 08/22/2024 [id number] A healthy lifestyle: care instructions Not available 08/22/2024 12:29:06 12/25/2024 [id number] A healthy lifestyle: care instructions Not available 12/25/2024 10:10:52 Reason for Referral None Reported. Results Created Date Observation Date Name Description Value Unit Range Abnormal Flag Note LastModifiedBy Organization Detail LastModifiedTime 03/21/20 24 03/22/2024 ALBUM IN/CR EAT RATIO , RANDO M UR creatinine, urine 157.4 mg/dL notest ab. Not Available [facility] ([email or web address]) [address] [place], [address], 03/22/2024 03:37:45 03/21/20 24 03/22/2024 ALBUM IN/CR EAT RATIO , RANDO M UR albumin, urine 5.4 ug/mL notest ab. Not Available [facility] ([email or web address]) [address] [place], [address], 03/22/2024 03:37:45 03/21/20 24 03/22/2024 ALBUM IN/CR EAT RATIO , RANDO M UR alb/creat ratio 3 mg/g_ creat 0-29 Luz Elena l: 0 - 29 Moder ately incre ased: 30 - 300 Sever cristy incre ased: >300 Not Available [facility] ([email or web address]) [address] [place], [address], 03/22/2024 03:37:45 03/21/20 24 03/22/2024 LIPID PANEL W/ CHOL/ HDL RATIO cholesterol, total 154 mg/dL 100-19 9 Not Available [facility] ([facility]) [address] [place], [address], 03/22/2024 03:37:46 03/21/20 24 03/22/2024 LIPID PANEL W/ CHOL/ HDL RATIO triglyceride s 160 mg/dL 0-149 above high normal Not Available [facility] ([facility]) [address] [place], [address], 03/22/2024 03:37:46 03/21/20 24 03/22/2024 LIPID PANEL W/ CHOL/ HDL RATIO HDL cholesterol 30 mg/dL >39 below low normal Not Available [facility] ([facility]) [address] [place], [address], 03/22/2024 03:37:46 03/21/20 24 03/22/2024 LIPID PANEL W/ CHOL/ HDL RATIO VLDL cholesterol dominick 28 mg/dL 5-40 Not Available [facility] ([facility]) [address] [place], [address], 03/22/2024 03:37:46 03/21/20 24 03/22/2024 LIPID PANEL W/ CHOL/ HDL RATIO LDL chol calc ([facility]) 96 mg/dL 0-99 Not Available [facility] ([facility]) [address] [place], [address], 03/22/2024 03:37:46 03/21/20 24 03/22/2024 LIPID PANEL W/ CHOL/ HDL RATIO T. chol/HDL ratio 5.1 ratio 0.0-5. 0 above high normal T. Chol/ HDL Ratio Men Women 1/2 Avg.R isk 3.4 3.3 Avg.R isk 5.0 4.4 2X Avg.R isk 9.6 7.1 3X Avg.R isk 23.4 11.0 Not Available [facility] ([facility]) [address] [place], [address], 03/22/2024 03:37:46 03/21/20 24 03/22/2024 TSH+F REE T4 TSH 0.505 uIU/m L 0.450- 4.500 Not Available [facility] ([facility]) [address] [facility] [place], [address], 03/22/2024 03:37:47 03/21/20 24 03/22/2024 TSH+F REE T4 T4,free(dire ct) 1.40 NG/dL 0.82-1 .77 Not Available [facility] ([facility]) [address] [facility] [place], [address], 03/22/2024 03:37:47 03/21/20 24 03/22/2024 COMP. METAB OLIC PANEL (14) glucose 106 mg/dL 70-99 above high normal Not Available [facility] ([facility]) [address] [facility] [place], [address], 03/22/2024 03:37:48 03/21/20 24 03/22/2024 COMP. METAB OLIC PANEL (14) BUN 12 mg/dL 6-24 Not Available [facility] ([facility]) [address] [place], [address], 03/22/2024 03:37:48 03/21/20 24 03/22/2024 COMP. METAB OLIC PANEL (14) creatinine 1.37 mg/dL 0.76-1 .27 above high normal Not Available [facility] ([facility]) [address] [place], [address], 03/22/2024 03:37:48 03/21/20 24 03/22/2024 COMP. METAB OLIC PANEL (14) eGFR 63 mL/mi n/1.7 3 >59 Not Available [facility] ([facility]) [address] [place], [address], 03/22/2024 03:37:48 03/21/20 24 03/22/2024 COMP. METAB OLIC PANEL (14) BUN/creatini ne ratio 9 9-20 Not Available [facility] ([facility]) [address] [place], [address], 03/22/2024 03:37:48 03/21/20 24 03/22/2024 COMP. METAB OLIC PANEL (14) sodium 138 mmol/ L 134-14 4 Not Available [facility] ([facility]) [address] [facility], [place], [address], 03/22/2024 03:37:48 03/21/20 24 03/22/2024 COMP. METAB OLIC PANEL (14) potassium 4.4 mmol/ L 3.5-5. 2 Not Available [facility] ([facility]) [address] [facility], [address], 03/22/2024 03:37:48 03/21/20 24 03/22/2024 COMP. METAB OLIC PANEL (14) chloride 100 mmol/ L 96-106 Not Available [facility] ([facility]) [address] [facility] [place], [address], 03/22/2024 03:37:48 03/21/20 24 03/22/2024 COMP. METAB OLIC PANEL (14) carbon dioxide, total 23 mmol/ L 20-29 Not Available [facility] ([facility]) [address] [facility] [place], [address], 03/22/2024 03:37:48 03/21/20 24 03/22/2024 COMP. METAB OLIC PANEL (14) calcium 9.6 mg/dL 8.7-10 .2 Not Available [facility] ([facility]) [address] [facility] [place], [address], 03/22/2024 03:37:48 03/21/20 24 03/22/2024 COMP. METAB OLIC PANEL (14) protein, total 6.5 g/dL 6.0-8. 5 Not Available [facility] ([facility]) [address] [facility] [place], [address], 03/22/2024 03:37:48 03/21/20 24 03/22/2024 COMP. METAB OLIC PANEL (14) albumin 4.5 g/dL 4.1-5. 1 Not Available [facility] ([facility]) [address] [facility] [place], [address], 03/22/2024 03:37:48 03/21/20 24 03/22/2024 COMP. METAB OLIC PANEL (14) globulin, total 2.0 g/dL 1.5-4. 5 Not Available [facility] ([facility]) [address] [facility] [place], [address], 03/22/2024 03:37:48 03/21/20 24 03/22/2024 COMP. METAB OLIC PANEL (14) A/G ratio 2.3 1.2-2. 2 above high normal Not Available [facility] ([facility]) [address] [facility] [place], [address], 03/22/2024 03:37:48 03/21/20 24 03/22/2024 COMP. METAB OLIC PANEL (14) bilirubin, total 0.6 mg/dL 0.0-1. 2 Not Available [facility] ([facility]) [address] [place], [address], 03/22/2024 03:37:48 03/21/20 24 03/22/2024 COMP. METAB OLIC PANEL (14) alkaline phosphatase 43 IU/L 44-121 below low normal Not Available [facility] ([facility]) [address] [place], [address], 03/22/2024 03:37:48 03/21/20 24 03/22/2024 COMP. METAB OLIC PANEL (14) AST (SGOT) 26 IU/L 0-40 Not Available [facility] ([facility]) [address] [place], [address], 03/22/2024 03:37:48 03/21/20 24 03/22/2024 COMP. METAB OLIC PANEL (14) ALT (SGPT) 48 IU/L 0-44 above high normal Not Available [facility] ([facility]) [address] [facility], [place], [address], 03/22/2024 03:37:48 03/21/20 24 03/22/2024 HEMOG LOBIN A1C hemoglobin A1C 5.7 % 4.8-5. 6 above high normal Predi abete s: 5.7 - 6.4 Diabe judi: >6.4 Glyce brijesh contr ol for adult s with diabe judi: <7.0 Not Available [facility] ([facility]) [address] [facility], [place], [address], 03/22/2024 03:37:49 03/21/20 24 03/22/2024 CBC WITH DIFFE RENTI AL/PL ATELE T WBC 5.8 x10e3 /uL 3.4-10 .8 Not Available [facility] ([facility]) [address] [facility], [place], [address], 03/22/2024 03:37:50 03/21/20 24 03/22/2024 CBC WITH DIFFE RENTI AL/PL ATELE T RBC 5.48 x10e6 /uL 4.14-5 .80 Not Available [facility] ([facility]) [address] [place], [address], 03/22/2024 03:37:50 03/21/20 24 03/22/2024 CBC WITH DIFFE RENTI AL/PL ATELE T hemoglobin 16.1 g/dL 13.0-1 7.7 Not Available [facility] ([facility]) [address] [place], [address], 03/22/2024 03:37:50 03/21/20 24 03/22/2024 CBC WITH DIFFE RENTI AL/PL ATELE T hematocrit 47.7 % 37.5-5 1.0 Not Available [facility] ([facility]) [address] [place], [address], 03/22/2024 03:37:50 03/21/20 24 03/22/2024 CBC WITH DIFFE RENTI AL/PL ATELE T MCV 87 fL 79-97 Not Available [facility] ([facility]) [address] [facility], [place], [address], 03/22/2024 03:37:50 03/21/20 24 03/22/2024 CBC WITH DIFFE RENTI AL/PL ATELE T MCH 29.4 pg 26.6-3 3.0 Not Available [facility] ([facility]) [address] [facility], [place], [address], 03/22/2024 03:37:50 03/21/20 24 03/22/2024 CBC WITH DIFFE RENTI AL/PL ATELE T MCHC 33.8 g/dL 31.5-3 5.7 Not Available [facility] ([facility]) [address] [facility], [place], [address], 03/22/2024 03:37:50 03/21/20 24 03/22/2024 CBC WITH DIFFE RENTI AL/PL ATELE T RDW 13.1 % 11.6-1 5.4 Not Available [facility] ([facility]) [address] [facility], [place], [address], 03/22/2024 03:37:50 03/21/20 24 03/22/2024 CBC WITH DIFFE RENTI AL/PL ATELE T platelets 300 x10e3 /uL 150-45 0 Not Available [facility] ([facility]) [address] [facility], [place], [address], 03/22/2024 03:37:50 03/21/20 24 03/22/2024 CBC WITH DIFFE RENTI AL/PL ATELE T neutrophils 45 % notest ab. Not Available [facility] ([facility]) [address] [facility], [place], [address], 03/22/2024 03:37:50 03/21/20 24 03/22/2024 CBC WITH DIFFE RENTI AL/PL ATELE T lymphs 46 % notest ab. Not Available [facility] ([facility]) [address] [facility], [place], [address], 03/22/2024 03:37:50 03/21/20 24 03/22/2024 CBC WITH DIFFE RENTI AL/PL ATELE T monocytes 8 % notest ab. Not Available [facility] ([facility]) [address] [facility], [place], [address], 03/22/2024 03:37:50 03/21/20 24 03/22/2024 CBC WITH DIFFE RENTI AL/PL ATELE T eos 1 % notest ab. Not Available [facility] ([facility]) [address] [facility], [place], [address], 03/22/2024 03:37:50 03/21/20 24 03/22/2024 CBC WITH DIFFE RENTI AL/PL ATELE T basos 0 % notest ab. Not Available [facility] ([facility]) [address] [facility], [place], [address], 03/22/2024 03:37:50 03/21/20 24 03/22/2024 CBC WITH DIFFE RENTI AL/PL ATELE T neutrophils (absolute) 2.6 x10e3 /uL 1.4-7. 0 Not Available [facility] ([facility]) [address] [facility], [place], [address], 03/22/2024 03:37:50 03/21/20 24 03/22/2024 CBC WITH DIFFE RENTI AL/PL ATELE T lymphs (absolute) 2.7 x10e3 /uL 0.7-3. 1 Not Available [facility] ([facility]) [address] [facility], [place], [address], 03/22/2024 03:37:50 03/21/20 24 03/22/2024 CBC WITH DIFFE RENTI AL/PL ATELE T monocytes(ab solute) 0.5 x10e3 /uL 0.1-0. 9 Not Available [facility] ([facility]) [address] [place], [address], 03/22/2024 03:37:50 03/21/20 24 03/22/2024 CBC WITH DIFFE RENTI AL/PL ATELE T eos (absolute) 0.0 x10e3 /uL 0.0-0. 4 Not Available [facility] ([facility]) [address] [place], [address], 03/22/2024 03:37:50 03/21/20 24 03/22/2024 CBC WITH DIFFE RENTI AL/PL ATELE T baso (absolute) 0.0 x10e3 /uL 0.0-0. 2 Not Available [facility] ([facility]) [address] [place], [address], 03/22/2024 03:37:50 03/21/20 24 03/22/2024 CBC WITH DIFFE RENTI AL/PL ATELE T immature granulocytes 0 % notest ab. Not Available [facility] ([facility]) [address] [place], [address], 03/22/2024 03:37:50 03/21/20 24 03/22/2024 CBC WITH DIFFE RENTI AL/PL ATELE T immature grans (abs) 0.0 x10e3 /uL 0.0-0. 1 Not Available [facility] ([facility]) [address] [place], [address], 03/22/2024 03:37:50 03/21/20 24 03/22/2024 PROST ATE-S PECIF IC AG prostate specific Ag 1.1 NG/mL 0.0-4. 0 Lawanda ECLIA metho dolog [...] t be inter prete d as absol [place] evide nce of the prese nce or absen ce of [facility] se. Not Available [facility] ([facility]) [address] [place], [address], 03/22/2024 03:37:51 09/12/20 24 09/13/2024 LIPID PANEL W/ CHOL/ HDL RATIO cholesterol, total 208 mg/dL 100-19 9 above high normal Not Available [facility] ([email or web address]) [address] [place], [address], 09/13/2024 08:26:15 09/12/20 24 09/13/2024 LIPID PANEL W/ CHOL/ HDL RATIO triglyceride s 188 mg/dL 0-149 above high normal Not Available [facility] ([facility]) [address] [place], [address], 09/13/2024 08:26:15 09/12/20 24 09/13/2024 LIPID PANEL W/ CHOL/ HDL RATIO HDL cholesterol 34 mg/dL >39 below low normal Not Available [facility] ([email or web address]) [address] [place], [address], 09/13/2024 08:26:15 09/12/20 24 09/13/2024 LIPID PANEL W/ CHOL/ HDL RATIO VLDL cholesterol dominick 34 mg/dL 5-40 Not Available [facility] ([email or web address]) [address] [place], [address], 09/13/2024 08:26:15 11/27/20 24 09/13/2024 LIPID PANEL W/ CHOL/ HDL RATIO LDL chol calc ([facility]) 140 mg/dL 0-99 above high normal Not Available [facility] ([facility]) [address] [place], [address], 09/13/2024 08:26:15 09/12/20 24 09/13/2024 LIPID PANEL W/ CHOL/ HDL RATIO T. chol/HDL ratio 6.1 ratio 0.0-5. 0 above high normal T. Chol/ HDL Ratio Men Women 1/2 Avg.R isk 3.4 3.3 Avg.R isk 5.0 4.4 2X Avg.R isk 9.6 7.1 3X Avg.R isk 23.4 11.0 Not Available [facility] ([facility]) [address] [place], [address], 09/13/2024 08:26:15 09/12/20 24 09/13/2024 TSH+F REE T4 TSH 1.080 uIU/m L 0.450- 4.500 Not Available [facility] ([facility]) [address] [place], [address], 09/13/2024 08:26:16 09/12/20 24 09/13/2024 TSH+F REE T4 T4,free(dire ct) 1.17 NG/dL 0.82-1 .77 Not Available [facility] ([facility]) [address] [place], [address], 09/13/2024 08:26:16 09/12/20 24 09/13/2024 COMP. METAB OLIC PANEL (14) glucose 100 mg/dL 70-99 above high normal Not Available [facility] ([facility]) [address] [place], [address], 09/13/2024 08:26:18 09/12/20 24 09/13/2024 COMP. METAB OLIC PANEL (14) BUN 16 mg/dL 6-24 Not Available [facility] ([facility]) [address] [facility] [place], [address], 09/13/2024 08:26:18 09/12/20 24 09/13/2024 COMP. METAB OLIC PANEL (14) creatinine 1.45 mg/dL 0.76-1 .27 above high normal Not Available [facility] ([facility]) [address] [facility] [place], [address], 09/13/2024 08:26:18 09/12/20 24 09/13/2024 COMP. METAB OLIC PANEL (14) eGFR 59 mL/mi n/1.7 3 >59 below low normal Not Available [facility] ([facility]) [address] [facility] [place], [address], 09/13/2024 08:26:18 09/12/20 24 09/13/2024 COMP. METAB OLIC PANEL (14) BUN/creatini ne ratio 11 - Not Available [facility] ([facility]) [address] [facility] [place], [address], 09/13/2024 08:26:18 09/12/20 24 09/13/2024 COMP. METAB OLIC PANEL (14) sodium 139 mmol/ L 134-14 4 Not Available [facility] ([facility]) [address] [facility] [place], [address], 09/13/2024 08:26:18 09/12/20 24 09/13/2024 COMP. METAB OLIC PANEL (14) potassium 4.5 mmol/ L 3.5-5. 2 Not Available [facility] ([facility]) [address] [facility] [place], [address], 09/13/2024 08:26:18 09/12/20 24 09/13/2024 COMP. METAB OLIC PANEL (14) chloride 100 mmol/ L 96-106 Not Available [facility] ([facility]) [address] [place], [address], 09/13/2024 08:26:18 09/12/20 24 09/13/2024 COMP. METAB OLIC PANEL (14) carbon dioxide, total 26 mmol/ L Not Available [facility] ([facility]) [address] [place], [address], 09/13/2024 08:26:18 09/12/20 24 09/13/2024 COMP. METAB OLIC PANEL (14) calcium 9.8 mg/dL 8.7-10 .2 Not Available [facility] ([facility]) [address] [place], [address], 09/13/2024 08:26:18 09/12/20 24 09/13/2024 COMP. METAB OLIC PANEL (14) protein, total 6.9 g/dL 6.0-8. 5 Not Available [facility] ([facility]) [address] [place], [address], 09/13/2024 08:26:18 09/12/20 24 09/13/2024 COMP. METAB OLIC PANEL (14) albumin 4.6 g/dL 4.1-5. 1 Not Available [facility] ([facility]) [address] [place], [address], 09/13/2024 08:26:18 09/12/20 24 09/13/2024 COMP. METAB OLIC PANEL (14) globulin, total 2.3 g/dL 1.5-4. 5 Not Available [facility] ([facility]) [address] [place], [address], 09/13/2024 08:26:18 09/12/20 24 09/13/2024 COMP. METAB OLIC PANEL (14) bilirubin, total 0.5 mg/dL 0.0-1. 2 Not Available [facility] ([facility]) [address] [place], [address], 09/13/2024 08:26:18 09/12/20 24 09/13/2024 COMP. METAB OLIC PANEL (14) alkaline phosphatase 45 IU/L 44-121 Not Available [facility] ([facility]) [address] [facility], [place], [address], 09/13/2024 08:26:18 09/12/20 24 09/13/2024 COMP. METAB OLIC PANEL (14) AST (SGOT) 24 IU/L 0-40 Not Available [facility] ([facility]) [address] [facility], [place], [address], 09/13/2024 08:26:18 09/12/20 24 09/13/2024 COMP. METAB OLIC PANEL (14) ALT (SGPT) 39 IU/L 0-44 Not Available [facility] ([facility]) [address] [facility], [place], [address], 09/13/2024 08:26:18 09/12/20 24 09/13/2024 HEMOG LOBIN A1C hemoglobin A1C 6.3 % 4.8-5. 6 above high normal Predi abete s: 5.7 - 6.4 Diabe judi: >6.4 Glyce brijesh contr ol for adult s with diabe judi: <7.0 Not Available [facility] ([facility]) [address] [facility], [place], [address], 09/13/2024 08:26:19 09/12/20 24 09/13/2024 CBC WITH DIFFE RENTI AL/PL ATELE T WBC 6.5 x10e3 /uL 3.4-10 .8 Eff ectiv e Decem carmela 2023 profi palmira [id number] 5 WBC will be made* * non-o rdera ble as a stand -nguyen e order code. Not Available [facility] ([facility]) [address] [facility], [place], [address], 09/13/2024 08:26:20 09/12/20 24 09/13/2024 CBC WITH DIFFE RENTI AL/PL ATELE T RBC 5.62 x10e6 /uL 4.14-5 .80 Not Available [facility] ([facility]) [address] [facility], [place], [address], 09/13/2024 08:26:20 09/12/20 24 09/13/2024 CBC WITH DIFFE RENTI AL/PL ATELE T hemoglobin 16.0 g/dL 13.0-1 7.7 Not Available [facility] ([facility]) [address] [facility], [place], [address], 09/13/2024 08:26:20 09/12/20 24 09/13/2024 CBC WITH DIFFE RENTI AL/PL ATELE T hematocrit 48.9 % 37.5-5 1.0 Not Available [facility] ([facility]) [address] [facility], [place], [address], 09/13/2024 08:26:20 09/12/20 24 09/13/2024 CBC WITH DIFFE RENTI AL/PL ATELE T MCV 87 fL 79-97 Not Available [facility] ([facility]) [address] [place], [address], 09/13/2024 08:26:20 09/12/20 24 09/13/2024 CBC WITH DIFFE RENTI AL/PL ATELE T MCH 28.5 pg 26.6-3 3.0 Not Available [facility] ([facility]) [address] [place], [address], 09/13/2024 08:26:20 09/12/20 24 09/13/2024 CBC WITH DIFFE RENTI AL/PL ATELE T MCHC 32.7 g/dL 31.5-3 5.7 Not Available [facility] ([facility]) [address] [place], [address], 09/13/2024 08:26:20 09/12/20 24 09/13/2024 CBC WITH DIFFE RENTI AL/PL ATELE T RDW 13.1 % 11.6-1 5.4 Not Available [facility] ([facility]) [address] [facility], [place], [address], 09/13/2024 08:26:20 09/12/20 24 09/13/2024 CBC WITH DIFFE RENTI AL/PL ATELE T platelets 317 x10e3 /uL 150-45 0 Not Available [facility] ([facility]) [address] [facility], [place], [address], 09/13/2024 08:26:20 09/12/20 24 09/13/2024 CBC WITH DIFFE RENTI AL/PL ATELE T neutrophils 46 % notest ab. Not Available [facility] ([facility]) [address] [facility], [place], [address], 09/13/2024 08:26:20 09/12/20 24 09/13/2024 CBC WITH DIFFE RENTI AL/PL ATELE T lymphs 44 % notest ab. Not Available [facility] ([facility]) [address] [facility], [place], [address], 09/13/2024 08:26:20 09/12/20 24 09/13/2024 CBC WITH DIFFE RENTI AL/PL ATELE T monocytes 7 % notest ab. Not Available [facility] ([facility]) [address] [facility], [place], [address], 09/13/2024 08:26:20 09/12/20 24 09/13/2024 CBC WITH DIFFE RENTI AL/PL ATELE T eos 1 % notest ab. Not Available [facility] ([facility]) [address] [facility], [place], [address], 09/13/2024 08:26:20 09/12/20 24 09/13/2024 CBC WITH DIFFE RENTI AL/PL ATELE T basos 1 % notest ab. Not Available [facility] ([facility]) [address] [facility], [place], [address], 09/13/2024 08:26:20 09/12/20 24 09/13/2024 CBC WITH DIFFE RENTI AL/PL ATELE T neutrophils (absolute) 3.0 x10e3 /uL 1.4-7. 0 Not Available [facility] ([facility]) [address] [facility], [place], [address], 09/13/2024 08:26:20 09/12/20 24 09/13/2024 CBC WITH DIFFE RENTI AL/PL ATELE T lymphs (absolute) 2.9 x10e3 /uL 0.7-3. 1 Not Available [facility] ([facility]) [address] [facility], [place], [address], 09/13/2024 08:26:20 09/12/20 24 09/13/2024 CBC WITH DIFFE RENTI AL/PL ATELE T monocytes(ab solute) 0.5 x10e3 /uL 0.1-0. 9 Not Available [facility] ([facility]) [address] [facility], [place], [address], 09/13/2024 08:26:20 09/12/20 24 09/13/2024 CBC WITH DIFFE RENTI AL/PL ATELE T eos (absolute) 0.1 x10e3 /uL 0.0-0. 4 Not Available [facility] ([facility]) [address] [place], [address], 09/13/2024 08:26:20 09/12/20 24 09/13/2024 CBC WITH DIFFE RENTI AL/PL ATELE T baso (absolute) 0.0 x10e3 /uL 0.0-0. 2 Not Available [facility] ([facility]) [address] [place], [address], 09/13/2024 08:26:20 09/12/20 24 09/13/2024 CBC WITH DIFFE RENTI AL/PL ATELE T immature granulocytes 1 % notest ab. Not Available [facility] ([facility]) [address] [facility], [place], [address], 09/13/2024 08:26:20 09/12/20 24 09/13/2024 CBC WITH DIFFE RENTI AL/PL ATELE T immature grans (abs) 0.0 x10e3 /uL 0.0-0. 1 Not Available [facility] ([facility]) [address] [facility], [place], [address], 09/13/2024 08:26:20 09/12/2009/13/2024 PROST ATE-S PECIF IC AG prostate specific Ag 1.0 NG/mL 0.0-4. 0 Lawanda ECLIA metho dolog [...] kits canno t be used inter lin eatwilay . Resul ts canno t be inter prete d as absol [place] evide nce of the prese nce or absen ce of hui [place] se. Not Available [facility] ([facility]) [address] [facility], [place], [address], 09/13/2024 08:26:21 11/22/1911/23/2024 LIPID PANEL W/ CHOL/ HDL RATIO cholesterol, total 154 mg/dL 100-19 9 Not Available [facility] ([facility]) [address] [facility], [place], [address], 11/23/2024 09:08:20 11/22/19 25 11/23/2024 LIPID PANEL W/ CHOL/ HDL RATIO triglyceride s 191 mg/dL 0-149 above high normal Not Available [facility] ([facility]) [address] [place], [address], 11/23/2024 09:08:20 11/22/19 25 11/23/2024 LIPID PANEL W/ CHOL/ HDL RATIO HDL cholesterol 31 mg/dL >39 below low normal Not Available [facility] ([facility]) [address] [place], [address], 11/23/2024 09:08:20 11/22/19 25 11/23/2024 LIPID PANEL W/ CHOL/ HDL RATIO VLDL cholesterol dominick 33 mg/dL 5-40 Not Available [facility] ([facility]) [address] [place], [address], 11/23/2024 09:08:20 11/22/19 25 11/23/2024 LIPID PANEL W/ CHOL/ HDL RATIO LDL chol calc (nih) 90 mg/dL 0-99 Not Available [facility] ([facility]) [address] [place], [address], 11/23/2024 09:08:20 11/22/19 25 11/23/2024 LIPID PANEL W/ CHOL/ HDL RATIO T. chol/HDL ratio 5.0 ratio 0.0-5. 0 T. Chol/ HDL Ratio Men Women 1/2 Avg.R isk 3.4 3.3 Avg.R isk 5.0 4.4 2X Avg.R isk 9.6 7.1 3X Avg.R isk 23.4 11.0 Not Available [facility] ([facility]) [address] [place], [address], 11/23/2024 09:08:20 11/22/19 25 11/23/2024 COMP. METAB OLIC PANEL (14) glucose 111 mg/dL 70-99 above high normal Not Available [facility] ([facility]) [address] [place], [address], 11/23/2024 09:08:23 11/22/19 25 11/23/2024 COMP. METAB OLIC PANEL (14) BUN 15 mg/dL 6-24 Not Available [facility] ([facility]) [address] [place], [address], 11/23/2024 09:08:23 11/22/19 25 11/23/2024 COMP. METAB OLIC PANEL (14) creatinine 1.40 mg/dL 0.76-1 .27 above high normal Not Available [facility] ([facility]) [address] [place], [address], 11/23/2024 09:08:23 11/22/19 25 11/23/2024 COMP. METAB OLIC PANEL (14) eGFR 61 mL/mi n/1.7 3 >59 Not Available [facility] ([facility]) [address] [place], [address], 11/23/2024 09:08:23 11/22/19 25 11/23/2024 COMP. METAB OLIC PANEL (14) BUN/creatini ne ratio 11 9-20 Not Available [facility] ([facility]) [address] [facility] [place], [address], 11/23/2024 09:08:23 11/22/19 25 11/23/2024 COMP. METAB OLIC PANEL (14) sodium 142 mmol/ L 134-14 4 Not Available [facility] ([facility]) [address] [place], [address], 11/23/2024 09:08:23 11/22/19 25 11/23/2024 COMP. METAB OLIC PANEL (14) potassium 4.4 mmol/ L 3.5-5. 2 Not Available [facility] ([facility]) [address] [facility] [place], [address], 11/23/2024 09:08:23 11/22/19 25 11/23/2024 COMP. METAB OLIC PANEL (14) chloride 100 mmol/ L 96-106 Not Available [facility] ([facility]) [address] [facility] [place], [address], 11/23/2024 09:08:23 11/22/19 25 11/23/2024 COMP. METAB OLIC PANEL (14) carbon dioxide, total 26 mmol/ L 20-29 Not Available [facility] ([facility]) [address] [facility] [place], [address], 11/23/2024 09:08:23 11/22/19 25 11/23/2024 COMP. METAB OLIC PANEL (14) calcium 9.9 mg/dL 8.7-10 .2 Not Available [facility] ([facility]) [address] [facility] [place], [address], 11/23/2024 09:08:23 11/22/19 25 11/23/2024 COMP. METAB OLIC PANEL (14) protein, total 7.1 g/dL 6.0-8. 5 Not Available [facility] ([facility]) [address] [facility] [place], [address], 11/23/2024 09:08:23 11/22/19 25 11/23/2024 COMP. METAB OLIC PANEL (14) albumin 4.8 g/dL 4.1-5. 1 Not Available [facility] ([facility]) [address] [facility] [place], [address], 11/23/2024 09:08:23 11/22/19 25 11/23/2024 COMP. METAB OLIC PANEL (14) globulin, total 2.3 g/dL 1.5-4. 5 Not Available [facility] ([facility]) [address] [facility] [place], [address], 11/23/2024 09:08:23 11/22/19 25 11/23/2024 COMP. METAB OLIC PANEL (14) bilirubin, total 1.1 mg/dL 0.0-1. 2 Not Available [facility] ([facility]) [address] [place], [address], 11/23/2024 09:08:23 11/22/19 25 11/23/2024 COMP. METAB OLIC PANEL (14) alkaline phosphatase 45 IU/L 44-121 Not Available [facility] ([facility]) [address] [place], [address], 11/23/2024 09:08:23 11/22/19 25 11/23/2024 COMP. METAB OLIC PANEL (14) AST (SGOT) 28 IU/L 0-40 Not Available [facility] ([facility]) [address] [place], [address], 11/23/2024 09:08:23 11/22/19 25 11/23/2024 COMP. METAB OLIC PANEL (14) ALT (SGPT) 49 IU/L 0-44 above high normal Not Available [facility] ([facility]) [address] [place], [address], 11/23/2024 09:08:23 11/22/19 25 11/23/2024 HEMOG LOBIN A1C hemoglobin A1C 6.0 % 4.8-5. 6 above high normal Predi abete s: 5.7 - 6.4 Diabe judi: >6.4 Glyce brijesh contr ol for adult s with diabe judi: <7.0 Not Available [facility] ([facility]) [address] [place], [address], 11/23/2024 09:08:25 02/14/20 24 02/14/2024 MRI, abdom en, w/wo contr ast No observ ation record ed. [address], [place], [address], 02/18/2024 17:44:46 10/07/23/2024 home sleep testi ng (PROC ) No observ ation record ed. [facility] [address], [place], [address], 08/08/2024 17:15:32 09/26/2009/11/2024 home sleep testi ng (PROC ) No observ ation record ed. [facility] [address], [place], [address], 09/27/2024 14:09:18 Result Notes None recorded. Problems Name Problem SNOMED Code Status Onset Date Resolution Date Notes Provider Name and Address Organization Details Recorded Time Obesity 826067914 Active 2023 CECELIA Martin Attn: Tereza swan,[address] [place], [address], [facility] 4 22:49:02 Body mass index 30+ - obesity 637405437 Active 2023 CECELIA Martin Attn: Tereza swan,[address] [place], [address], [place] - [facility] 4 22:49:03 Long-term drug therapy Active 2023 CECELIA Martin Attn: Tereza swan,[address] [place], [address], [place] [facility] 4 22:49:16 History of calculus of kidney 564223939 Active 2023 CECELIA Martin Attn: Tereza swan,[address] [place], [address], [place] [facility] 4 22:49:23 Cyst of kidney 333046122 Active 2023 CECELIA Martin Attn: Tereza swan,[address] [place], [address], [place] [facility] 4 22:49:25 Cyst of pancreas 63131889 Active 2023 CECELIA Martin Attn: Tereza swan,[address] [facility], [place], [address], [place] [facility] 4 22:49:34 Mixed hyperlipidemia 723788206 Active 2023 CECELIA Martin Attn: Tereza swan,[address] [facility], [place], [address], [place] [facility] 4 22:49:57 Well controlled type 2 diabetes mellitus 128546483 Active 2023 CECELIA Martin Attn: Tereza swan,[address] [facility], [place], [address], [place] [facility] 4 22:50:27 Obstructive sleep apnea syndrome 68206736 Active 2024 CECELIA Martin Attn: Tereza swan,[address] [facility], [place], [address], [place] [facility] 5 10:10:50 Hyperlipidemia 08890063 Active 2024 CECELIA Martin Attn: Tereza swan,[address] [facility], [place], [address], [place] - [facility] 5 22:45:22 Problem Notes None recorded. Procedures Surgical History Date Name Laterality Status Provider Name and Address Organization Details Recorded Time Vasectomy completed Melinda Galdamez [place] - [facility] 14:12:59 Imaging Results Imaging Date Name Status LastModified by Organiz ation Details LastModified Time 02/14/2024 MRI, abdomen, w/wo contrast completed [email or web address] [address] [address] [facility] [address], [place], [address], 02/18/2024 17:44:46 07/23/2024 home sleep testing (PROC) completed [facility] [address], [place], [address], 08/08/2024 17:15:32 09/11/2024 home sleep testing (PROC) completed [facility] [address], [place], [address], 09/27/2024 14:09:18 Procedure Notes None recorded. Medical Equipment None Reported. Allergies No known drug allergies Medications Name Sig Start Date Stop Date Status Note LastModified by Organization Details LastModified Time sulfamethox azole 800 mg-trimetho prim 160 mg tablet TAKE 1 TABLET BY MOUTH TWICE DAILY 03/05 completed Not Available Not Available Not Available tramadol 50 mg tablet TAKE 1 TABLET BY MOUTH EVERY 6 HOURS NEEDED FOR PAIN 03/05 completed Not Available Not Available Not Available tamsulosin 0.4 mg capsule TAKE 1 CAPSULE BY MOUTH AT BEDTIME 03/05 completed Not Available Not Available Not Available metformin ER 750 mg tablet,exte nded release 24 hr TAKE 1 TABLET BY MOUTH DAILY WITH DINNER 12/25 completed ON HOLD elayne de santiago. Not Available Not Available Not Available rosuvastati n 5 mg tablet Take 1 tablet every day by oral route for 90 days. active Not Available Not Available No t Available nitrofurant oin monohydrate /macrocryst als 100 mg capsule TAKE 1 CAPSULE BY MOUTH TWICE A DAY FOR 7 DAYS 03/05 completed Not Available Not Available Not Available fenofibrate 160 mg tablet TAKE 1 TABLET BY MOUTH DAILY active Not Available Not Available No t Available Jardiance 10 mg tablet TAKE 1 TABLET BY MOUTH EVERY DAY active Not Available Not Available No t Available Ozempic 0.25 mg or 0.5 mg (2 mg/3 mL) subcutaneou s pen injector INJECT 0.5 MG SUBCUTAEN OUSLY ONCE WEEKLY 08/22 completed Not Available Not Available Not Available Vitals Date Recorded Body weight Body mass index (BMI) Body height Heart rate Oxygen saturation Oxygen saturation in Arterial blood by Pulse oximetry Systolic blood pressure Diastolic blood pressure Provider Name and Address Organization Details Last Updated DateTime 4 902823. 65 g 34.3 kg/m2 177.8 cm 89 /min 97 % 97 % 136 mm[Hg] 74 mm[Hg] Melinda Galdamez MA [place] - [facility] 4 14:15:18 Date Recorded Systolic blood pressure Diastolic blood pressure Systolic blood pressure Diastolic blood pressure Provider Name and Address Organization Details Last Updated DateTime 03/05/2024 130 mm[Hg] 82 mm[Hg] 130 mm[Hg] 82 mm[Hg] CECELIA Martin Attn: Accounting ,[address] [place], [address] , [facility] 4 14:41:42 Date Recorded Body height Body mass index (BMI) Body weight Respiratory rate Oxygen saturation Oxygen saturation in Arterial blood by Pulse oximetry Heart rate Systolic blood pressure Diastolic blood pressure Provider Name and Address Organization Details Last Updated DateTime 4 177.8 cm 34 kg/m2 977086. 39 g 20 /min 96 % 96 % 75 /min 126 mm[Hg] 82 mm[Hg] Belinda Mc MA [facility] 4 11:59:49 Date Recorded Body height Body mass index (BMI) Body weight Oxygen saturation Oxygen saturation in Arterial blood by Pulse oximetry Heart rate Systolic blood pressure Diastolic blood pressure Provider Name and Address Organization Details Last Updated DateTime 5 177.8 cm 33.9 kg/m2 725928. 8 g 97 % 97 % 96 /min 136 mm[Hg] 82 mm[Hg] Belinda Mc MA [facility] 5 10:08:02 Date Recorded Respiratory rate Systolic blood pressure Diastolic blood pressure Provider Name and Address Organization Details Last Updated DateTime 12/25/2024 16 /min 130 mm[Hg] 80 mm[Hg] CECELIA Martin Attn: Accounting, [address] [place], [address], [facility] 01/13/2025 22:43:49 Social History Question Answer Notes LastModified by Organizat ion Details LastModified Time Tobacco Smoking Status Never Smoker Melinda Galdamez MA null, [place] - [facility] 03/05/2024 14:10:02 Do You Have An Advance Directive? No Information n ot available 03/05/2024 What Is Your Level Of Alcohol Consumption? None Information not available 03/05/2024 Are You Blind Or Do You Have Difficulty Seeing? Yes Glasses Information n ot available 03/05/2024 What Is Your Level Of Caffeine Consumption? None Information not available 03/05/2024 In The 14 Days Before Symptom Onset, Have You Had Close Contact With A Laboratory-confirm ed COVID-19 While That Case Was Ill? No Information n ot available 03/05/2024 In The 14 Days Before Symptom Onset, Have You Had Close Contact With A Person Who Is Under Investigation For COVID-19 While That Person Was Ill? No Information not available 03/05/2024 Have You Been To An Area Known To Be High Risk For COVID-19? No Information not available 03/05/2024 Are You Currently Employed? Yes Information not available 03/05/2024 Are You Deaf Or Do You Have Serious Difficulty Hearing? No Information not available 03/05/2024 What Type Of Diet Are You Following? 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 No Information not available 03/05/2024 What Was The Date Of Your Most Recent Tobacco Screening? 12/25/2024 [email or web address] Information not available 12/25/2024 What Is Your Relationship Status? Information not available 03/05/2024 Do You Use Your Seat Belt Or Car Seat Routinely? Yes Information not available 03/05/2024 Do You Have Smoke And Carbon Monoxide Detectors In Your Home? Yes Information not available 03/05/2024 Do You Feel Stressed (tense, Restless, Nervous, Or Anxious, Or Unable To Sleep At Night)? [id number] Information not available 03/05/2024 Do You Use Any Illicit Or Recreational Drugs? No Information not available 03/05/2024 Do You Use Sunscreen Routinely? No Information not available 03/05/2024 Has Tobacco Cessation Counseling Been Provided? No Information not available 03/05/2024 Do You Or Have You Ever Used Any Other Forms Of Tobacco Or Nicotine? No Information not available 03/05/2024 Sex: Male Functional Status Question Answer Note LastModified by Organization D etails LastModified Time Are you able to care for yourself? Yes Information not available 03/05/2024 What is your exercise level? Heavy Daily Information not available 03/05/2024 Mental Status None recorded. Family History Relationship Description Onset Age of this Age Resolved Age Notes LastModified by Organization Details LastModified Time Father Alcohol abuse [email or web address] Not available 2023 14:09:38 Mother Hypertensive disorder [email or web address] Not available 2023 14:09:44 Medical History Condition Response Anxiety Disorder Y Diabetes Y High Cholesterol Y Kidney or Bladder Problems Y Immunizations Vaccine Type Date Status Note Provider Nam e and Address Organization Details Recorded Time Influenza, MDCK, quadrivalent, PF 0 completed Belinda Mc [place], [place] [facility] 08/06/2024 11:05:42 Influenza, MDCK, quadrivalent, PF 2 completed Bel[place] [facility] 08/06/2024 11:05:42 Influenza, MDCK, quadrivalent, PF 3 completed Bel[place] [facility] 08/06/2024 11:05:42 COVID-19, mRNA, LNP-S, PF, 100 mcg/0.5mL dose or 50 mcg/0.25mL dose 1 completed Bel[place] [facility] 08/06/2024 11:05:42 COVID-19, mRNA, LNP-S, PF, 100 mcg/0.5mL dose or 50 mcg/0.25mL dose 1 completed Bel[place] [facility] 08/06/2024 11:05:42 COVID-19, mRNA, LNP-S, PF, 100 mcg/0.5mL dose or 50 mcg/0.25mL dose 2 completed Bel[place] [facility] 08/06/2024 11:05:42 COVID-19, mRNA, LNP-S, PF, 30 mcg/0.3 mL dose 1 completed [place] [facility] 08/06/2024 11:05:42 COVID-19, mRNA, LNP-S, bivalent, PF, 50 mcg/0.5 mL or 25mcg/0.25 mL dose 2 completed DAPHNIE [place] [facility] 08/06/2024 11:05:42 COVID-19, mRNA, LNP-S, PF, valeria-sucrose, 30 mcg/0.3 mL 3 [place] [facility] 08/06/2024 11:05:42 Influenza, split virus, trivalent, preservative 7 [place] [facility] 08/06/2024 11:05:42 Influenza, split virus, trivalent, PF 5 [place] [facility] 08/06/2024 11:05:42 Influenza, split virus, trivalent, PF 6 [place] [facility] 08/06/2024 11:05:42 Influenza, split virus, quadrivalent, PF 8 [place] [facility] 08/06/2024 11:05:42 influenza, unspecified formulation 4 [place] [facility] 08/06/2024 11:07:49 SARS-COV-2 (COVID-19) vaccine, UNSPECIFIED 4 [place] [facility] 08/06/2024 11:09:23 MMRV 4 [place] [facility] 12/25/2024 10:06:13 tetanus toxoid, unspecified formulation 4 [place] [facility] 12/25/2024 10:06:36 Past Encounters Encounter ID Performer Location Encounter Start Date Encounter Closed Date Diagnosis/Indication Diagnosis SNOMED-CT Code Diagnosis ICD10 Code Diagnosis Note [id number] CECELIA Martin [facility] [place] [address] [place] [address] 03/05/2024 13:51:27 03/05/2024 15:23:21 Well controlled type 2 diabetes mellitus 128443977 E11.9 Stable on metformin Er 750mg daily and ozempic 0.5mg weekly. labs are due including urine microalbum in and a1c. Mixed hyperlipidemia 267 444749 E78.2 stable on fenofibrat e 160mg daily. due for fasting lipids. Long-term drug therapy 952722711 Z79.899 CBC, CMP and TFts due. History of calculus of kidney 442772815 Z87.442 hx noted. has seen urology Cyst of pancreas 3419015 0 K86.2 repeat MRI abdomen w/wo 1 year. stable over the last two scan evaluation . Cyst of kidney 098699024 N28.[address] scans. stable. Screening for malignant neoplasm of prostate 880867734 Z12.5 annual PSA due Adult heal th examination 171743192 Z00.01 annual wellness completed. Body mass index 30+ - obesity 357988724 Z68.34 bmi 34.3 Obesity 359031260 E66.9 discussed healthy diet, exercise, controllin g carbohydra judi and added sugars in the diet [id number] CECELIA Martin [facility] [place] [address] [place] [address] 08/22/2024 11:20:27 08/27/2024 16:12:13 Well controlled type 2 diabetes mellitus 687172113 E11.9 Stable on metformin Er 750mg daily Mixed hyperlipidemia 267 238271 E78.2 stable on fenofibrat e 160mg daily. due for fasting lipids. Cyst of pancreas 9078892 0 K86.2 repeat MRI abdomen w/wo 1 year. stable over the last two scan evaluation . Cyst of kidney 935720514 N28.[address] scans. stable. History of calculus of kidney 319826637 Z87.442 hx noted. has seen urology Long-term drug therapy 001224941 Z79.899 CBC, CMP and TFts due. Screening for malignant neoplasm of prostate 484643186 Z12.5 annual PSA due Body mass index 30+ - obesity 264704643 Z68.34 bmi 34.3 Obesity 555831152 E66.9 discussed healthy diet, exercise, controllin g carbohydra judi and added sugars in the diet Obstructiv e sleep apnea syndrome 09816103 G47.33 Dwaine muniz the insurance is not going to acknowledg e the sleep study that was ordered when the patient just called in to get an order for it to be completed because the previous office note did not reference that. Dwaine muniz there is no work around on this and the patient is going to have to start over and getting another home sleep study and this note today discussing the fact that indeed we have already confirmed that he has obstructiv e sleep apnea and and that CPAP is needed with settings provided. Insurance will not cover it so we will start the process over and the patient is willing to pay out-of-poc ket to have another study at [facility]. [id number] CECELIA Martin [facility] [place] [address] [place] [address] 12/25/2024 09:58:00 12/25/2024 10:32:41 Body mass index 30+ - obesity 240072216 Z68.33 BMI is 33.9 Obesity 708148346 E66.9 discussed healthy diet, exercise, controllin g carbohydra judi and added sugars in the diet Obstructiv e sleep apnea syndrome 29922270 G47.33 94% usage score. 6-6.5 hours per night. Excellent results. Pleased with CPAP therapy results with great adherence. Hyperlipidemia 78122601 E78.5 Discussed other screening measures for coronary evaluation . He is on rosuvastat in 5 mg daily and fenofibrat e 160 mg daily but we will send for a CT calcium scoring test Long-term drug therapy 684755102 Z79.899 labs are UTD Health Concerns Section Related Observation LastModified by Organization Detai ls LastModified Time None Recorded Concern Status LastModified by Organization Details LastModified Time None Recorded Advance Directives Directive N: Payers Encounter Date Sequence Insurance Name Policy Number Policy Peacock Covered Member ID Peacock Member ID Guarantor Name 03/05/2024 1 [facility] [id number] Brad Villa [id number] Brad Villa 08/22/2024 1 [facility] [id number] Brad Villa [id number] Brad Villa 12/25/2024 1 [employer] [id number] Brad Villa [id number] Brad Villa Notes Date Note Type Note Provider Name and Address Organization Details Recorded Time 03/05/2024 text/html DiabetesReported bypatient.Notes:stable on metformin ER 750mg daily and ozempic 0.5mg weekly.HyperlipidemiaR eported bypatient.Notes:pt is taking fenofibrate 160mg daily. due for labs. Hx of recent kidney stone . CECELIA Martin Attn: Accounting,[address] [facility], [place], [address], [facility] 08/22/2024 12:32:23 08/22/2024 text/html DiabetesReported bypatient.Notes:stable on metformin ER 750mg daily and ozempic 0.5mg weekly.HyperlipidemiaR eported bypatient.Notes:pt is taking fenofibrate 160mg daily. due for labs.Obstructive Sleep Apnea F/UReported bypatient.Quality:wors ening;loud snoring;witnessed apnea Onset/Timing:chronic Severity:moderate;diff iculty getting going in the morning; severity of ANGLE on PSG: Context:lack of adequate sleep;history of sleep disorder Prior Tests:home sleep study Prior opinionPCPNotes:Unfort unately insurance will not honor the July sleep study because there was no office note to discuss ordering it. Hx of recent kidney stone . CECELIA Martin Attn: Accounting,[address] [facility], [place], [id number], [facility] 09/03/2024 09:23:20 12/25/2024 text/html Obstructive Slee p Apnea F/UReported bypatient.Notes:Brandie maldonado is now with CPAP therapy using it every night. He is adherent to the nightly use. His data is reviewed and is in good range. He has no complaints and he does feel as though there is positive improvements in his overall energy and quality of sleep and he is pleased with the results of treatment. CECELIA Martin Attn: Accounting,[address] [facility], [place], [address], [facility] 01/13/2025 22:46:01
== END 2025-01-19 07:23 | disposition home or self-care (01) ==
PROVIDERS: PCP Physician Assistant; Visit Provider Physician Assistant
DX: K86.2 Cyst of pancreas (principal)
CPT/HCPCS: 74183; A9577